=== PATIENT | female | born 1955 | race Caucasian/White ===

== ENCOUNTER → 2023-10-11 11:38 | Outpatient (REF) | payer MEDICARE, OTHER, SELFPAY | LOC: HWWDC 11:38 | PROVIDERS: ATTENDING PHYSICIAN Family Medicine | DX: Z12.31 Encounter for screening mammogram for malignant neoplasm of breast (principal) | CPT/HCPCS: 77063; 77067 ==

== ENCOUNTER → 2023-10-13 07:33 | Outpatient (REF) | payer MEDICARE, OTHER, SELFPAY | LOC: EMG 07:33 | PROVIDERS: ATTENDING PHYSICIAN Orthopaedic Surgery Orthopaedic Surgery of the Spine; FAMILY PHYSICIAN Family Medicine | DX: R20.0 Anesthesia of skin (principal) | CPT/HCPCS: 95886; 95909 ==

== ENCOUNTER → 2023-10-23 11:56 | Outpatient (REF) | payer MEDICARE, OTHER, SELFPAY ==
[2023-10-23 16:01] LABS: % Basophils 1.2 % (0-2); % Eosinophils 3.7 % (0-6); % Immature Granulocytes 0.2 % (0-0.5); % Lymphocytes 36.8 % (20.5-51.1); % Monocytes 10.5 % (1.7-9.3); % Neutrophils 47.6 % (42.2-75.2); Absolute Basophils 0.1 10^3/uL (0-0.2); Absolute Eosinophils 0.2 10^3/uL (0-0.7); Absolute Lymphocytes 1.9 10^3/uL (1.2-3.4); Absolute Monocytes 0.5 10^3/uL (0.1-0.6); Absolute Neutrophils 2.5 10^3/uL (1.4-6.5); Hematocrit 41.3 % (37.0-47.0); Hemoglobin 15.1 g/dL (12.0-16.0); Mean Corp Hgb Conc. 36.6 g/dL (33.0-37.0); Mean Corpuscular Hgb 32.4 pg (27.0-31.0); Mean Corpuscular Volume 88.6 fL (81.0-99.0); Mean Platelet Volume 11.2 fL (7.4-10.4); Nucleated Red Blood Cells % 0 %; Platelet Count 177 10^3/uL (130-400); Red Blood Cell Count 4.66 10^6/uL (4.20-5.40); Red Cell Dist. Width 12.8 % (11.5-14.5); White Blood Cell Count 5.1 10^3/uL (4.8-10.8)
[2023-10-23 16:16] LABS: ALT (SGPT) 51 U/L (0-35); AST (SGOT) 46 U/L (14-36); Albumin 4.4 g/dl (3.5-5.0); Alkaline Phosphatase 63 U/L (38-126); Blood Urea Nitrogen 26 mg/dl (7-17); Calcium 9.9 mg/dl (8.4-10.2); Carbon Dioxide 28 mmol/L (22-30); Chloride 104 mmol/L (98-107); Glucose 97 mg/dl (70-99); HDL Cholesterol 86 mg/dl; LDL Cholesterol, Calculated 97 mg/dl; Potassium 4.1 mmol/L (3.5-5.1); Sodium 139 mmol/L (135-145); Total Bilirubin 1.2 mg/dl (0.2-1.3); Total Cholesterol 196 mg/dl (50-199); Total Protein 7.1 g/dl (6.3-8.2); Triglyceride 68 mg/dl (10-149); Very Low Density Lipoprotein 13 mg/dl (0-30); eGFR > 60.00
[2023-10-24 09:07] LABS: Glycohemoglobin (HgbA1c) 5.6 % (4.0-5.6)
== END ==
LOC: HWLAB 11:56
PROVIDERS: ATTENDING PHYSICIAN Family Medicine
DX: Z00.00 Encounter for general adult medical examination without abnormal findings (principal); I10 Essential (primary) hypertension; E78.00 Pure hypercholesterolemia, unspecified; R73.01 Impaired fasting glucose
CPT/HCPCS: 36415; 80053; 80061; 83036; 85025

== ENCOUNTER → 2024-10-21 12:08 | Outpatient (REF) | payer MEDICARE, OTHER, SELFPAY | LOC: WDC 12:08 | PROVIDERS: ATTENDING PHYSICIAN Family Medicine | DX: Z12.31 Encounter for screening mammogram for malignant neoplasm of breast (principal) | CPT/HCPCS: 77063; 77067 ==

== ENCOUNTER → 2024-10-25 12:45 | Outpatient (REF) | payer MEDICARE, OTHER, SELFPAY ==
[2024-10-25 13:52] LABS: Hematocrit 40.6 % (37.0-47.0); Hemoglobin 14.1 g/dL (12.0-16.0); Mean Corp Hgb Conc. 34.7 g/dL (33.0-37.0); Mean Corpuscular Volume 89.8 fL (81.0-99.0); Nucleated Red Blood Cells % 0 %; Platelet Count 171 10^3/uL (130-400); Red Cell Dist. Width 12.7 % (11.5-14.5)
[2024-10-25 14:14] LABS: Glycohemoglobin (HgbA1c) 5.5 % (4.0-5.6)
[2024-10-25 14:19] LABS: ALT (SGPT) 57 U/L (0-35); AST (SGOT) 42 U/L (14-36); Albumin 4.4 g/dl (3.5-5.0); Alkaline Phosphatase 51 U/L (38-126); Blood Urea Nitrogen 24 mg/dl (7-17); Calcium 9.7 mg/dl (8.4-10.2); Carbon Dioxide 32 mmol/L (22-30); Chloride 106 mmol/L (98-107); Glucose 98 mg/dl (70-99); HDL Cholesterol 85 mg/dl; LDL Cholesterol, Calculated 88 mg/dl; Potassium 4.6 mmol/L (3.5-5.1); Sodium 139 mmol/L (135-145); Total Protein 7.3 g/dl (6.3-8.2); Very Low Density Lipoprotein 13 mg/dl (0-30); eGFR > 60.00
[2024-10-25 16:03] LABS: Hepatitis C Antibody Negative (Negative)
== END ==
LOC: REG 12:45
PROVIDERS: ATTENDING PHYSICIAN Family Medicine
DX: R79.89 Other specified abnormal findings of blood chemistry (principal); E78.00 Pure hypercholesterolemia, unspecified; R73.01 Impaired fasting glucose; I10 Essential (primary) hypertension; Z00.00 Encounter for general adult medical examination without abnormal findings
CPT/HCPCS: 36415; 80053; 80061; 83036; 85025; 86803

== ENCOUNTER → 2024-12-31 11:25 | Outpatient (REF) | payer MEDICARE, OTHER, SELFPAY | LOC: HWRAD 11:25 | PROVIDERS: ATTENDING PHYSICIAN Family Medicine | DX: R79.89 Other specified abnormal findings of blood chemistry (principal) | CPT/HCPCS: 76700 ==

== ENCOUNTER → 2025-01-29 15:38 | Outpatient (REF) | payer MEDICARE, OTHER, SELFPAY | LOC: RCS 15:38 | PROVIDERS: ATTENDING PHYSICIAN Internal Medicine Cardiovascular Disease; FAMILY PHYSICIAN Family Medicine | DX: R06.02 Shortness of breath (principal) | CPT/HCPCS: 93306 ==

== ENCOUNTER → 2025-01-30 13:50 | Outpatient (REF) | payer MEDICARE, OTHER, SELFPAY | LOC: RCS 13:50 | PROVIDERS: ATTENDING PHYSICIAN Internal Medicine Cardiovascular Disease; FAMILY PHYSICIAN Family Medicine | DX: R07.89 Other chest pain (principal) | CPT/HCPCS: 93017; 93350 ==

== ENCOUNTER → 2025-01-31 13:18 | Outpatient (REF) | payer MEDICARE, OTHER, SELFPAY ==
[2025-01-31 15:31] LABS: Hematocrit 42.1 % (37.0-47.0); Hemoglobin 14.5 g/dL (12.0-16.0); Mean Corp Hgb Conc. 34.4 g/dL (33.0-37.0); Mean Corpuscular Volume 87.7 fL (81.0-99.0); Nucleated Red Blood Cells % 0 %; Platelet Count 201 10^3/uL (130-400); Red Cell Dist. Width 12.4 % (11.5-14.5)
[2025-01-31 15:52] LABS: ALT (SGPT) 47 U/L (0-35); AST (SGOT) 31 U/L (14-36); Albumin 4.5 g/dl (3.5-5.0); Alkaline Phosphatase 63 U/L (38-126); Blood Urea Nitrogen 25 mg/dl (7-17); Calcium 9.9 mg/dl (8.4-10.2); Carbon Dioxide 27 mmol/L (22-30); Chloride 105 mmol/L (98-107); Glucose 131 mg/dl (70-99); Potassium 4.1 mmol/L (3.5-5.1); Sodium 137 mmol/L (135-145); Total Protein 7.5 g/dl (6.3-8.2); eGFR > 60.00
== END ==
LOC: HWLAB 13:18
PROVIDERS: ATTENDING PHYSICIAN Internal Medicine Interventional Cardiology; FAMILY PHYSICIAN Family Medicine
DX: E78.00 Pure hypercholesterolemia, unspecified (principal); I10 Essential (primary) hypertension; R06.02 Shortness of breath
CPT/HCPCS: 36415; 80053; 85025

== ENCOUNTER 2025-02-03 06:17 | Day surgery (SDC) | payer MEDICARE, OTHER, SELFPAY ==
[2025-02-03] VITALS (11 sets, daily range): BP systolic 125–154; BP diastolic 80–102; BMI 30.4
[2025-02-03] MEDS: NSS 237 ML IV (07:05)
[2025-02-03] MEDS: LOW STRENGTH ASPIRIN 81 MG PO (07:13)
[2025-02-03] MEDS: NSS 1000 IV (09:41)
--- NOTE | 2025-02-03 16:57 | ITS.CL.CATH ---
[facility] - Catheterization
Cardiac Catheterization
Procedure Report:
LEFT HEART CATHETERIZATION
Date of Procedure: February 03, 2025
Referring: Dr. Benson Zhu
PROCEDURES:
1. Left heart catheterization with coronary and single-plane left ventriculography
INDICATION: This is a 69-year-old female who was referred for stress echocardiogram that was notable for ECG changes and low-grade chest discomfort. Regional wall motion abnormalities were noted and she is now referred for coronary angiography.
ACCESS: Right radial artery, 6 [place] sheath
HEMODYNAMICS : (mmHg)
AO (s/d) : 142/85
LV (s/d) : 157/11
LVEDP : 19
CORONARY FINDINGS
DOMINANCE: Right
LEFT MAIN: Normal
LEFT ANTERIOR DESCENDING: The LAD is heavily calcified. There is a calcified eccentric plaque in the proximal LAD and the mid LAD is 100% occluded after a small diagonal branch. The distal vessel was noted to go stent via left to left collaterals.
CIRCUMFLEX: The circumflex has a heavily calcified eccentric 90% stenosis. Circumflex supplies a small OM1 and large caliber OM 2
RIGHT CORONARY ARTERY: The right coronary artery is heavily calcified with an eccentric calcified 70 to 80% stenosis spanning the origin of the RV marginal branch and 60% calcified stenosis distally. The PDA is a medium caliber vessel with tandem
60% stenoses in the mid vessel. The posterolateral branch is a large with an 80% proximal stenosis
VENTRICULOGRAPHY: Left ventriculography was performed in an ROA projection. The digital single-plane left ventricular ejection fraction is estimated at 60%
SEDATION: 31 minutes of procedural sedation was utilized. An independent director of medical staff services was present to assist with and help manage the patient's level of consciousness and physiologic status.
RADIATION SUMMARY: Fluoro Time (min): 3.0, Dose (mGy): 478, DAP (Gy.cm2) : 31.9
Closure Device: TR band
CONCLUSIONS
1. Severe multivessel coronary artery disease involving all the major epicardial vessels including LAD, circumflex, and RCA.
2. Preserved LV systolic function
RECOMMENDATIONS
1. Consult CT surgery to consider coronary artery bypass grafting
Copy to: Dr. Benson Zhu
== END 2025-02-03 11:59 | disposition home or self-care (01) ==
LOC: CATH 06:17
PROVIDERS: ATTENDING PHYSICIAN Internal Medicine Interventional Cardiology; FAMILY PHYSICIAN Family Medicine; OTHER PHYSICIAN Internal Medicine Cardiovascular Disease
DX: I25.10 Atherosclerotic heart disease of native coronary artery without angina pectoris (principal); I25.84 Coronary atherosclerosis due to calcified coronary lesion; R07.89 Other chest pain; I10 Essential (primary) hypertension; E78.2 Mixed hyperlipidemia; Z79.899 Other long term (current) drug therapy
CPT/HCPCS: 99152; 99153; 93458; C1769; C1894; Q9967

== ENCOUNTER → 2025-02-06 13:04 | Outpatient (REF) | payer MEDICARE, OTHER, SELFPAY | LOC: HWRAD 13:04 | PROVIDERS: ATTENDING PHYSICIAN Thoracic Surgery (Cardiothoracic Vascular Surgery); FAMILY PHYSICIAN Family Medicine | DX: Z01.818 Encounter for other preprocedural examination (principal); I25.10 Atherosclerotic heart disease of native coronary artery without angina pectoris | CPT/HCPCS: 71250 ==

== ENCOUNTER 2025-02-10 05:35 | Inpatient (IN) | payer MEDICARE, OTHER, SELFPAY ==
[2025-02-06 08:52] VITALS: BMI 29.4
[2025-02-06 09:15] LABS: Hematocrit 41.0 % (37.0-47.0); Hemoglobin 14.2 g/dL (12.0-16.0); Mean Corp Hgb Conc. 34.6 g/dL (33.0-37.0); Mean Corpuscular Volume 87.8 fL (81.0-99.0); Nucleated Red Blood Cells % 0 %; Platelet Count 180 10^3/uL (130-400); Red Cell Dist. Width 12.6 % (11.5-14.5)
[2025-02-06 09:25] LABS: INR 0.96; PT 13.2 Sec (11.4-14.6)
[2025-02-06 09:31] LABS: Urine Character Clear (Clear)
[2025-02-06 09:55] LABS: Urine Squamous Cell >30 /LPF (Few)
[2025-02-06 09:57] LABS: ALT (SGPT) 39 U/L (0-35); AST (SGOT) 29 U/L (14-36); Albumin 4.1 g/dl (3.5-5.0); Alkaline Phosphatase 59 U/L (38-126); Blood Urea Nitrogen 16 mg/dl (7-17); Calcium 9.8 mg/dl (8.4-10.2); Carbon Dioxide 26 mmol/L (22-30); Chloride 106 mmol/L (98-107); Estimated Creatinine Clearance 79 ml/min; Glucose 132 mg/dl (70-99); Potassium 3.8 mmol/L (3.5-5.1); Sodium 138 mmol/L (135-145); Total Protein 7.0 g/dl (6.3-8.2); eGFR > 60.00
[2025-02-06 10:03] LABS: Glycohemoglobin (HgbA1c) 5.8 % (4.0-5.9)
--- NOTE | 2025-02-06 10:57 | CM ---
spoke to pt and niece/Hemant in PAT's. we discussed preop CABG teaching including sternal and lifting restrictions. she is prev indep, lives alone in a 2 story home with 1 step to enter. she has had prev surgeries and has a ramp, stair glide,
walker , cane and a WC at home to use if needed. pts friend is going to stay with her for a month after surgery. she has the ct surgery book, soap and instructions. she is agreeable to a f/u visit form the ct transitional care nurses after dc. cm
role explained and all questions answered.
[2025-02-10] VITALS (16 sets, daily range): BP systolic 79–150; BP diastolic 62–91; BMI 28.8
[2025-02-10] MEDS: PROTONIX 40 MG PO (06:01)
[2025-02-10] MEDS: LOPRESSOR 25 MG PO (06:01)
[2025-02-10] MEDS: MAGNESIUM OXIDE 400 MG PO (06:01)
[2025-02-10] MEDS: BACTROBAN 2% OINTMENT 1 APPLIC NASAL ×2 (06:02→20:54)
--- NOTE | 2025-02-10 06:10 | PTCARENOTE ---
Patient admitted to CVICU. Admission questions asked. Confirmed 2 CHG showers. Med rec completed. Multi vitamin and Vitamin D 3 patient states were taken 4 days ago on 02/06/25. Medications administered. Washed patient w/ CHG wipes, clipped,
and labs drawn. Awaiting CVOR.
--- NOTE | 2025-02-10 06:19 | W.CVOR.SURPR ---
CVOR Surgeon Immed Pre Op
-
I have examined this patient prior to performance of the scheduled procedure.
The patient's condition is unchanged from the time of the dictated/written History and
Physical and the patient is able to undergo the scheduled procedure.
[2025-02-10 07:51] LABS: ACT+ - POC 137 Seconds (82-134)
[2025-02-10 08:03] LABS: Urine Character Clear (Clear)
[2025-02-10 10:01] LABS: ACT+ - POC 616 Seconds (82-134)
[2025-02-10 10:20] LABS: B.E. - POC -0.8 mmol/L; Glucose - POC 105 mg/dl (70-99); HCO3 - POC 25 mmol/L (21-28); Hematocrit - POC 36 % PCV (37-47); Hemodilution- POC No; Hemoglobin Calculated - POC 12.1; Ionized Calcium - POC 1.24 mmol/L (1.15-1.33); Lactate - POC 1.02 mmol/L (0.36-0.75); O2 Saturation %Calculated-POC 99.8 % (94-98); PCO2 - POC 44 mmHg (35-48); PO2 - POC 249 mmHg (83-108); Potassium - POC 3.4 mmol/L (3.5-5.1); Sodium - POC 141 mmol/L (136-145); Specimen Type - POC Arterial; pH - POC 7.36 (7.35-7.45)
[2025-02-10 10:32] LABS: ACT+ - POC 656 Seconds (82-134)
[2025-02-10 10:47] LABS: B.E. - POC 4.8 mmol/L; Glucose - POC 125 mg/dl (70-99); HCO3 - POC 29 mmol/L (21-28); Hematocrit - POC 31 % PCV (37-47); Hemodilution- POC Yes; Hemoglobin Calculated - POC 10.6; Ionized Calcium - POC 0.99 mmol/L (1.15-1.33); Lactate - POC 1.04 mmol/L (0.36-0.75); O2 Saturation %Calculated-POC 100.0 % (94-98); PCO2 - POC 40 mmHg (35-48); PO2 - POC 350 mmHg (83-108); POC Comment CPB; Potassium - POC 4.4 mmol/L (3.5-5.1); Sodium - POC 141 mmol/L (136-145); Specimen Type - POC Arterial; pH - POC 7.47 (7.35-7.45)
[2025-02-10 10:55] LABS: ACT+ - POC 568 Seconds (82-134)
[2025-02-10 11:15] LABS: B.E. - POC 4.9 mmol/L; Glucose - POC 127 mg/dl (70-99); HCO3 - POC 27 mmol/L (21-28); Hematocrit - POC 29 % PCV (37-47); Hemodilution- POC Yes; Hemoglobin Calculated - POC 9.8; Ionized Calcium - POC 1.09 mmol/L (1.15-1.33); Lactate - POC 1.76 mmol/L (0.36-0.75); O2 Saturation %Calculated-POC 99.9 % (94-98); PCO2 - POC 32 mmHg (35-48); PO2 - POC 289 mmHg (83-108); POC Comment CPB; Potassium - POC 4.2 mmol/L (3.5-5.1); Sodium - POC 139 mmol/L (136-145); Specimen Type - POC Arterial; pH - POC 7.54 (7.35-7.45)
[2025-02-10 11:25] LABS: ACT+ - POC 602 Seconds (82-134)
[2025-02-10 11:43] LABS: B.E. - POC 1.5 mmol/L; Glucose - POC 139 mg/dl (70-99); HCO3 - POC 26 mmol/L (21-28); Hematocrit - POC 31 % PCV (37-47); Hemodilution- POC Yes; Hemoglobin Calculated - POC 10.6; Ionized Calcium - POC 1.09 mmol/L (1.15-1.33); Lactate - POC 2.37 mmol/L (0.36-0.75); O2 Saturation %Calculated-POC 99.9 % (94-98); PCO2 - POC 41 mmHg (35-48); PO2 - POC 271 mmHg (83-108); POC Comment WARM; Potassium - POC 4.2 mmol/L (3.5-5.1); Sodium - POC 143 mmol/L (136-145); Specimen Type - POC Arterial; pH - POC 7.42 (7.35-7.45)
[2025-02-10 11:46] LABS: ACT+ - POC 479 Seconds (82-134)
[2025-02-10 11:59] LABS: ACT+ - POC 590 Seconds (82-134)
[2025-02-10 12:08] LABS: B.E. - POC 1.3 mmol/L; Glucose - POC 154 mg/dl (70-99); HCO3 - POC 26 mmol/L (21-28); Hematocrit - POC 32 % PCV (37-47); Hemodilution- POC Yes; Hemoglobin Calculated - POC 11.0; Ionized Calcium - POC 1.10 mmol/L (1.15-1.33); Lactate - POC 2.84 mmol/L (0.36-0.75); O2 Saturation %Calculated-POC 99.9 % (94-98); PCO2 - POC 43 mmHg (35-48); PO2 - POC 253 mmHg (83-108); POC Comment WARM; Potassium - POC 4.2 mmol/L (3.5-5.1); Sodium - POC 143 mmol/L (136-145); Specimen Type - POC Arterial; pH - POC 7.39 (7.35-7.45)
[2025-02-10] MEDS: ANCEF 10 IV ×2 (12:08)
[2025-02-10 12:14] LABS: ACT+ - POC 137 Seconds (82-134)
[2025-02-10 12:32] LABS: B.E. - POC -4.8 mmol/L; Glucose - POC 97 mg/dl (70-99); HCO3 - POC 20 mmol/L (21-28); Hematocrit - POC 26 % PCV (37-47); Hemodilution- POC Yes; Hemoglobin Calculated - POC 8.8; Ionized Calcium - POC 1.22 mmol/L (1.15-1.33); Lactate - POC 3.02 mmol/L (0.36-0.75); O2 Saturation %Calculated-POC 99.2 % (94-98); PCO2 - POC 32 mmHg (35-48); PO2 - POC 140 mmHg (83-108); POC Comment POST; Potassium - POC 3.0 mmol/L (3.5-5.1); Sodium - POC 144 mmol/L (136-145); Specimen Type - POC Arterial; pH - POC 7.39 (7.35-7.45)
[2025-02-10] MEDS: NEURONTIN PO ×2 (12:45→15:45)
[2025-02-10] MEDS: VITAMIN D3 (cholecalciferol) PO (12:45)
[2025-02-10] MEDS: THERAGRAN PO (12:45)
[2025-02-10 12:51] LABS: B.E. - POC -2.6 mmol/L; Glucose - POC 92 mg/dl (70-99); HCO3 - POC 22 mmol/L (21-28); Hematocrit - POC 29 % PCV (37-47); Hemodilution- POC Yes; Hemoglobin Calculated - POC 10.0; Ionized Calcium - POC 1.23 mmol/L (1.15-1.33); Lactate - POC 3.61 mmol/L (0.36-0.75); O2 Saturation %Calculated-POC 99.9 % (94-98); PCO2 - POC 37 mmHg (35-48); PO2 - POC 316 mmHg (83-108); Potassium - POC 3.7 mmol/L (3.5-5.1); Sodium - POC 142 mmol/L (136-145); Specimen Type - POC Arterial; pH - POC 7.39 (7.35-7.45)
--- NOTE | 2025-02-10 13:17 | W.IMMPOSTOP ---
Addendum entered and electronically signed by Paul Norman MD 02/10/25 16:57:
[id number]
Original Note:
Surgical Immed Post Op Note
-
CARDIAC SURGERY OPERATIVE NOTE:
Preoperative Dx:
MVCAD
Postoperative Dx:
Same
Procedures:
1) Median sternotomy
2) Takedown of LOUANN (narrow pedicle)
3) Endoscopic harvest/prep of RLE GSV
4) CABG x 3 (LOUANN to LAD, GSV to OM, GSV to mid-PDA)
5) ELAA (35mm AtriClip)
Surgeon:
Paul Norman M.D.
Assistants:
Erika AngA.-C.; endoscopic harvest/prep of RLE GSV; surgical first assistant throughout; uoinzx-rhcj-vhuu sternotomy closure
Zach Guevara P.A.-C.; rgresm-uyff-gdle sternotomy closure
Anesthesia:
Vince Ariza M.D. and Kassidy Ortiz, C.R.N.A.
Perfusion:
Caroline Ness, C.C.P.; CPB: 106min, XC: 68min
Findings:
LOUANN was healthy conduit w/ very brisk blood flow; ELD 2.25mm
GSV was healthy conduit w/ ELD 3.25-4.00mm
LAD was visible on the epicardial surface, aflefhcc-jy-qghuc scattered calcification, anastomosis performed just distal to D2/D3. No sig calcifications at this location. ELD 2.75mm. Very brisk flow observed entering LAD and diagonal branches w/
release of bulldog clamp.
Major OM branch was visible on the epicardial surface, moderate scattered calcifications, ELD 3.25mm
RPDA was visible on the epicardial surface, druedksl-oh-rbzqp scattered calcifications from proximal to mid-segments. ELD 3.00mm at midpoint anastomosis
RPLBs were all small (<1mm), terminal RPLB branch was slightly larger - 1.25mm....however, its course was in very close proximity to large, bypassed OM branch - bypass not performed
ARTHUR w/ small base & windsock morphology - successfully occluded at its base w/ 35mm AtriClip - confirmed w/ postoperative KIEL
After initial sternal closure, pt. w/ minor hypotension w/ SBP in 70s-80s and concurrent bigeminy. Mediastinal re-explored w/no bleeding, good position in all grafts. Transit-time U/S flow probe assessment repeated w/ continued excellent flow in
all grafts. Pt. w/ good response to pharmacologic resuscitation w/ SBP 120s - bigeminy resolved. Sternum closed w/o issue
Complications:
None
Implants:
Epicardial bipolar V-wire x 1 (not sutured)
CT x 4 (B/L pleural, inferior mediastinal, superior mediastinal)
Sternal wires x 8
Condition:
75 sinus (0.2/0.1), 113/71, CVP 20, 99%
GTTS: levophed 6, precedex 0.5, insulin 0.5
Stable/guarded to CVICU
[2025-02-10] MEDS: TYLENOL PO (13:38)
[2025-02-10 13:47] LABS: Glucose - Point of Care 186 mg/dl (70-99)
[2025-02-10 13:58] LABS: Hematocrit 35.0 % (37.0-47.0); Hemoglobin 12.1 g/dL (12.0-16.0); Platelet Count 144 10^3/uL (130-400)
[2025-02-10 13:59] LABS: B.E. -2.2 mmol/L; HCO3 23.2 mmol/L (21-28); O2 Saturation % 99.6 % (94-98); PCO2 41 mmHg (32-35); PO2 147 mmHg (83-108); Potassium 4.2 mMOL/L (3.5-5.1); Sodium 138 mMOL/L (136-145)
[2025-02-10 14:09] LABS: INR 1.37; PT 17.2 Sec (11.4-14.6)
--- NOTE | 2025-02-10 14:09 | CM ---
Patient to OR today for CABGx3/AtriClip. CM following.
[2025-02-10 14:10] LABS: APTT 29.8 Sec (23.4-35.0)
[2025-02-10 14:16] LABS: Blood Urea Nitrogen 13 mg/dl (7-17); Estimated Creatinine Clearance 92 ml/min; Glucose 183 mg/dl (70-99); Magnesium 2.8 mg/dl (1.6-2.3)
[2025-02-10] MEDS: NSS 500 IV (14:18)
[2025-02-10] MEDS: CALCIUM GLUCONATE 100 IV (14:30)
--- NOTE | 2025-02-10 14:51 | PTCARENOTE ---
Pt arrived from CVOR to CVICU at 1345. Pt remains intubated and sedated. EKG completed, pt is SR with HR 70's. BP 127/72 MAP 91. CVP 12. Epicardial V wire in place set to 30/10/2. Current temp 97.1, Eri hugger in place. Pt intubated with #8 ET tube
at 22cm left lip. Oral care completed. Vent settings FiO2 40%, RR 14, TV 400, PEEP 5, pressure support 5. Pulse oximetry 96%. Mediastinal chest x2 and left/right pleural chest tubes in place to -20 suction, no sign of air leak or crepitus, drainage
red. Bowel sounds hypoactive. Betancourt catheter in place draining yellow urine. Betancourt care completed. Midsternal incision with post-surgical pressing in place, small amount of drainage noted. Right leg puncture approximated with surgical adhesive.
Right leg incision with aislinn wrap in place. Right IJ cordis and SLIC in place. Left radial [place] intact. Pt currently on Insulin, Precedex, and Levo. Post-op EKG and X-ray completed. Labs collected and reviewed. iCal being replaced per order.
--- NOTE | 2025-02-10 15:04 | CON.INTV ---
Consultation
Consultation Request
Date/Time Consultation Requested: 02/10/2025-2 PM
Date/Time Consultation Performed: 02/10/2025-2:30 PM
Requesting Provider: Dr. Norman
Performing Provider: Dr. Gilliam
Reason for Consultation: Postoperative ventilator/critical care management
Medical History
-
Chief Complaint: CAD
History of Present Illness:
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 The patient
is sedated on the ventilator seen in the CVICU nonverbal and review of systems unobtainable. Operative records were reviewed. She did not receive any blood products. Chest tubes are not dumping. She is on intermittent low-dose norepinephrine.
Past Medical History
Past Medical History: None (Hypertension. Hyperlipidemia. CAD. Chronic headaches. Chronic back pain. Meniscal tear left knee. Bilateral rotator cuff 2010, 2017. Rhinoplasty 1996. Carpal tunnel.)
Social History
Tobacco: Non-smoker
Alcohol: Occasional (2 glasses a year)
Drug: None
Personal: Single
Occupational Exposures: No known asbestos exposure
Environmental Exposures: No known tuberculosis exposure
Family History
Family History: Reviewed & Not Pertinent (Father-CVA and CAD, hypertension. Mother cardiomyopathy)
Allergies / Home Medications
Allergies
Allergy/AdvReac Type Severity Reaction Status Date / Time
Penicillins Allergy Severe Rash/Hives Verified 02/10/25 05:22
Sulfa (Sulfonamide Allergy Severe Anaphylaxis Verified 02/04/25 16:57
Antibiotics)
oxycodone (From Percocet) Allergy Intermediate Nausea/Vomi Verified 02/10/25 05:22
ting
banana Allergy mouth Verified 02/04/25 16:58
swelling
coconut Allergy mouth Verified 02/04/25 16:58
swelling
Home Medications
�Medication �Instructions �Recorded �Confirmed �Last Taken �Type
aspirin 81 mg tablet 81 mg PO DAILY 02/03/25 02/10/25 02/09/25 08:00 History
cholecalciferol (vitamin D3) 25 25 mcg PO DAILY 02/03/25 02/10/25 02/06/25 08:00 History
mcg (1,000 unit) chewable tablet
(Vitamin D3)
lisinopril 5 mg tablet 5 mg PO HS 02/03/25 02/10/25 02/06/25 19:00 History
metoprolol succinate 25 mg 25 mg PO BID #60 tabs 02/03/25 02/10/25 02/09/25 19:00 Rx
tablet,extended release 24 hr
multivitamin 1 tab PO DAILY 02/03/25 02/10/25 02/06/25 08:00 History
rosuvastatin 40 mg tablet 40 mg PO HS 02/04/25 02/10/25 02/09/25 17:00 History
Review of Systems
-
Unable to Obtain full review of systems at this time due to: Other (Per HPI)
Vitals / Labs / Diagnostic Testing
Vital Signs
Temp Pulse Resp BP Pulse Ox
97 F 79 14 95/72 96
02/10/25 15:00 02/10/25 15:00 02/10/25 15:00 02/10/25 14:00 02/10/25 15:00
Lab Data
02/10/25 13:49
Laboratory Results
02/10/25
13:49
PT 17.2 H
INR 1.37
APTT 29.8
pH 7.36
pCO2 41 H
pO2 147 H
HCO3 23.2
O2 Delivery Level
Microbiology
02/06/25 08:35 Nose MRSA Screen - Final
No Methicillin Resistant Staphylococcus aureus isolated.
Diagnostic Testing:
Physical Exam
-
Exam:
Well-nourished and well-developed in no apparent distress
HEENT-atraumatic, normocephalic, oral tracheal intubation
Heart-regular rate and rhythm-no murmurs, rubs or gallops
Chest-clear to auscultation, no wheezes, crackles, median sternotomy bandage is not removed
Abdomen soft nondistended
Extremities-no cyanosis, clubbing, edema and good peripheral pulses
Integument-intact, no rashes, lesions or ecchymosis
Neurologically not alert, not oriented, not moving any of his extremities sedated on a ventilator
Assessment
-
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
Multivessel CAD with preoperative preserved EF
Status post CABG x 3-Liz-LAD, GSV-OM, GSV to mid PDA 02/10/2025-Dr. Norman
Hyperglycemia-blood sugar 183, A1c 5.8
Conditions present prior to admission:
Hypertension.
Hyperlipidemia.
CAD.
Chronic headaches.
Chronic back pain.
Meniscal tear left knee. Bilateral rotator cuff 2010, 2017. Rhinoplasty 1996. Carpal tunnel.
Plan
Ventilator settings reviewed
FiO2 will be weaned
Minute ventilation will be adjusted
Arterial blood gases will be monitored
Spontaneous breathing trial will be attempted with hopeful extubation after anesthesia/sedation wear off
Pulmonary artery catheter parameters will be followed
Pressors/antihypertensive/inotropes/diuretics will be provided as needed
Monitor chest tube output
Monitor hemoglobin
Monitor platelet count and coags
Transfuse blood product if needed
CT surgery following chest tubes
Monitor blood sugar
Insulin drip per protocol
Aspiration precautions
VAP prevention protocol
DVT prophylaxis
Early nutrition
Early mobilization
Critical care statement: A total of 55 minutes of critical care time was provided for this patient today. This includes management of ventilator, spontaneous breathing trial, arterial blood gases, pressors, of unstable vital signs, evaluation of the
patient at bedside, reviewing the patient's pertinent medical records including radiographs, microbiology, laboratory evaluations, and discussion with primary team and critical care nursing.
Diagnostic data:
CT chest 02/06/2025-no acute findings in the chest, severe coronary artery calcifications
Cardiac catheterization 02/03/2025-severe multivessel CAD involving all the major epicardial vessels including LAD, circumflex and RCA with EF 60%
Data Reviewed
-
EKG: Report reviewed by me
Radiology: Report reviewed by me
CT Scan: Report reviewed by me
Medical Tests (Nuc Med, Echo etc): Report reviewed by me
Labs: Labs reviewed by me
Critical Care Time (in minutes): 55
[2025-02-10 15:07] LABS: Glucose - Point of Care 144 mg/dl (70-99)
[2025-02-10] MEDS: PACERONE PO (15:44)
[2025-02-10 16:03] LABS: Glucose - Point of Care 110 mg/dl (70-99)
--- NOTE | 2025-02-10 16:08 | PTCARENOTE ---
Precedex gtt off. Pt triggering on vent, respiratory at bedside and placed pt on CPAP trial at 1554. Pt briefly awoke, able to move all extremities. Tolerating CPAP trial at this time. Pt remains SR with HR 98. BP 115/70 MAP 85. CVP 13. Remains on
Levo 1mcg/min.
[2025-02-10 16:41] LABS: B.E. -0.6 mmol/L; HCO3 24.9 mmol/L (21-28); O2 Saturation % 98.4 % (94-98); PCO2 43 mmHg (32-35); PO2 93 mmHg (83-108); Potassium 4.4 mMOL/L (3.5-5.1); Sodium 139 mMOL/L (136-145)
[2025-02-10 16:46] LABS: Hematocrit 37.0 % (37.0-47.0); Hemoglobin 13.0 g/dL (12.0-16.0); Platelet Count 161 10^3/uL (130-400)
--- NOTE | 2025-02-10 16:55 | RESPNOTE ---
16:50 02/10/2025 Patient extubated to 5L NC as per order without incident. (+) cuff leak, (-) stridor at this time.
[2025-02-10] MEDS: LR 250 ML IV ×3 (16:58→23:30)
[2025-02-10 17:14] LABS: Glucose - Point of Care 98 mg/dl (70-99)
[2025-02-10] MEDS: OFIRMEV 100 IV (17:19)
--- NOTE | 2025-02-10 17:21 | PTCARENOTE ---
Pt extubated to 6L nasal cannula at 1650, pulse oximetry 95%. Pt remains very drowsy but is able to awake, state name and and move all extremities. Pt received 250mL LR bolus and is now receiving Ofirmev. Remains SR with HR 98. BP 112/63 MAP 80.
CVP 13. Levo currently off.
[2025-02-10 17:58] LABS: Glucose - Point of Care 110 mg/dl (70-99)
[2025-02-10 19:17] LABS: Glucose - Point of Care 115 mg/dl (70-99)
[2025-02-10] MEDS: ANCEF 5 IV (20:53)
[2025-02-10] MEDS: LOW STRENGTH ASPIRIN 81 MG PO (20:53)
[2025-02-10] MEDS: SENOKOT 8.6 MG PO (20:54)
[2025-02-10] MEDS: ULTRAM 25 MG PO (20:55)
--- NOTE | 2025-02-10 21:00 | PTCARENOTE ---
Assumed care of pt from dayshift RN. Walking rounds at bedside. Pt AAOx3. S/P CVOR. MACIAS. Appropriate. SR on the tele monitor. HR 80s. Temporary epicardial v-wire intact and set to VVI 30/10/2. BP 90-120s/50-60s. CVP ~7-12. Pt 97% on 6 L NC, titrated
down to 4L NC. Mediastinal CTx2 and R/L pleural CT's to -20 suction, no airleaks noted at this time, and output as documented. Abdomen round. Hypoactive BS. Betancourt catheter intact and draining yellow urine. Pt tolerating ice chips. All surgical sites
stable. Right IJ cordis w/ SLIC, PIVx1, and L radial a-line intact. All lines leveled, zeroed, and flushed. Levo infusing to keep SBPs 100-130s. Pt repositioned as needed. See worklist for full nursing assessment and interventions. Tramadol ordered
for pain management - see MAR. Call ashton within reach.
[2025-02-10 21:06] LABS: Glucose - Point of Care 106 mg/dl (70-99)
[2025-02-10 23:02] LABS: Glucose - Point of Care 95 mg/dl (70-99)
[2025-02-10] MEDS: NEURONTIN 100 MG PO (23:03)
[2025-02-10] MEDS: PACERONE 200 MG PO (23:03)
[2025-02-10] MEDS: LIPITOR 80 MG PO (23:03)
[2025-02-10] MEDS: TYLENOL 975 MG PO (23:05)
[2025-02-11] VITALS (36 sets, daily range): BP systolic 76–125; BP diastolic 56–90; PULSE 87; O2SAT 96–97; BMI 30.1
--- NOTE | 2025-02-11 00:43 | PTCARENOTE ---
Pt reassessed. Remains SR on the tele monitor. HR 80s. V-wire intact. BP 100-110s/50s. CVP ~7-8. 250 LR bolus x2 for low BPs. Pt 96% on 4 L NC. Mediastinal CTx4 assessment unchanged. Output as documented. Betancourt catheter intact and draining yellow
urine. All surgical sites stable. All lines leveled, zeroed, and flushed. Glycemic protocol followed. Low dose levo infusing. Repositioned as documented in worklist. No c/o pain at this time. Call ashton within reach.
[2025-02-11 01:16] LABS: Glucose - Point of Care 112 mg/dl (70-99)
[2025-02-11] MEDS: LR 250 ML IV ×2 (03:10→08:09)
[2025-02-11 03:13] LABS: Glucose - Point of Care 83 mg/dl (70-99)
[2025-02-11 03:34] LABS: Hematocrit 32.6 % (37.0-47.0); Hemoglobin 11.4 g/dL (12.0-16.0); Mean Corp Hgb Conc. 35.0 g/dL (33.0-37.0); Mean Corpuscular Volume 88.6 fL (81.0-99.0); Platelet Count 155 10^3/uL (130-400); Red Cell Dist. Width 12.5 % (11.5-14.5)
[2025-02-11] MEDS: ULTRAM 25 MG PO (03:53)
[2025-02-11] MEDS: ANCEF 5 IV ×2 (03:54→12:07)
[2025-02-11 03:57] LABS: Blood Urea Nitrogen 14 mg/dl (7-17); Calcium 8.2 mg/dl (8.4-10.2); Carbon Dioxide 26 mmol/L (22-30); Chloride 107 mmol/L (98-107); Estimated Creatinine Clearance 92 ml/min; Glucose 88 mg/dl (70-99); Magnesium 2.2 mg/dl (1.6-2.3); Potassium 4.0 mmol/L (3.5-5.1); Sodium 135 mmol/L (135-145); eGFR > 60.00
--- NOTE | 2025-02-11 04:43 | PTCARENOTE ---
No change in assessment. SR on tele. V-wire intact. HR 80s. BP 100s/50s. SBP's drop to 80s when levo off. Pt on 2 L NC. POX 95%. Mediastinal CTx2 assessment unchanged, outputs as documented. Betancourt catheter intact and draining yellow urine. EKG
completed. Labs sent. Pt repositioned as documented. Glycemic protocol followed. Levo @ 1. Call ashton within reach.
[2025-02-11 05:08] LABS: Glucose - Point of Care 115 mg/dl (70-99)
[2025-02-11] MEDS: TYLENOL 975 MG PO ×3 (06:28→22:16)
[2025-02-11 07:20] LABS: Glucose - Point of Care 96 mg/dl (70-99)
--- NOTE | 2025-02-11 07:24 | W.PN.INTV ---
Today's Communication / Plan
Recommendations
Wean pressors
Tolerated extubation
Wean supplemental oxygen
Incentive spirometry
Aspiration precaution
Increase activity
Insulin drip
Assessment
-
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
Multivessel CAD with preoperative preserved EF
Status post CABG x 3-Liz-LAD, GSV-OM, GSV to mid PDA 02/10/2025-Dr. Norman
Hyperglycemia-blood sugar 183, A1c 5.8
Conditions present prior to admission:
Hypertension.
Hyperlipidemia.
CAD.
Chronic headaches.
Chronic back pain.
Meniscal tear left knee. Bilateral rotator cuff 2017. Rhinoplasty 1996. Carpal tunnel.
Plan
Remains critically ill on norepinephrine
Episode of lightheadedness when trying to get out of bed this morning with marginal blood pressure
Tolerated extubation
Wean FiO2
Encourage incentive spirometry
Increase activity
Aspiration precautions
Pulmonary artery catheter and arterial line will be removed
Pressors to be weaned-on low-dose norepinephrine
Continue to monitor chest tube output
Follow hemoglobin
Continue to follow platelet count and coags
Transfuse blood product as needed
CT surgery following chest tubes as well
Follow blood sugar
Insulin drip continues
Early nutrition
Early mobilization
DVT prophylaxis
Critical care statement: A total of 35 minutes of critical care time was provided for this patient today. This includes management of ventilator, spontaneous breathing trial, arterial blood gases, pressors, of unstable vital signs, evaluation of the
patient at bedside, reviewing the patient's pertinent medical records including radiographs, microbiology, laboratory evaluations, and discussion with primary team and critical care nursing.
Diagnostic data:
CT chest 02/06/2025-no acute findings in the chest, severe coronary artery calcifications
Cardiac catheterization 02/03/2025-severe multivessel CAD involving all the major epicardial vessels including LAD, circumflex and RCA with EF 60%
Subjective Dataa
Subjective Data
Date of Service:
Date of Service: February 11, 2025
Chief Complaint: Missile [employer] Preflight Follow Up, Pulmonary Follow Up and Vent Management Follow Up
Subjective:
Tolerated extubation, lightheaded this morning when she tried to get up, marginal blood pressures, out of bed over norepinephrine, currently no shortness of breath, pain controlled,
Review of Systems
General: Other (Per HPI)
Objective Data
Data Reviewed
Vital Signs / I&O / Oxygen:
Vital Signs
Temp Pulse Resp BP Pulse Ox
99 F 83 16 77/57 97
02/11/25 06:00 02/11/25 07:00 02/11/25 07:00 02/11/25 07:00 02/11/25 07:00
Intake and Output
02/10/25 02/11/25 02/12/25
06:59 06:59 06:59
Intake Total 1510.4 / 1540.2 29.8 / 29.8
Output Total 1969 / 2059 90 / 90
Balance -459.6 / -519.8 -60.2 / -60.2
SaO2 [CPAP] 96
SaO2 [SIMV] 97
SaO2 97
Nasal Cannula flow liters per 2
minute
Physical Exam
General: Respiratory Distress and Comfortable
HEENT: Normocephalic and Anicteric
Cardiovascular: Regular Rhythm
Respiratory: Wheeze (n), Crackles (n), Rhonchi, Non-Labored Respirations, Accessory Resp Muscle Use (n) and Stridor
GI: Soft, Non Distended and Non Tender
Neurology: Awake, Alert and No Motor Deficits
Skin: Warm, Good Color, Cyanosis (n), Jaundice (n) and Rash (n)
Labs/Micro/Reports
Lab Data
02/11/25 03:18
02/11/25 03:18
Laboratory Results
02/10/25 02/10/25 02/11/25
13:49 16:31 06:00
PT 17.2 H
INR 1.37
APTT 29.8
pH 7.36 7.37 Cancelled
pCO2 41 H 43 H Cancelled
pO2 147 H 93 Cancelled
HCO3 23.2 24.9 Cancelled
O2 Delivery Level Cancelled
--- NOTE | 2025-02-11 07:51 | W.PN.ANS.POP ---
Anesthesia Post Operative
- Anesthesia Post Op Note
Vital Signs Stable-See Nursing Note: Yes (levo gtt)
Airway Patent: Yes (nasal cannula)
Adequate Pain Control: Yes
Change in Mental Status: No
Current Postoperative Nausea & Vomiting: No
Anesthesia Complications: No
General Anesthetic Recall: No
Unplanned Admission: No
Post Op Hydration Adequate: Yes
--- NOTE | 2025-02-11 08:09 | W.PN.CT ---
Today's Communication / Plan
-
-pod #1
-no issues overnight
-got total 1L LR postop
-drips: Levo 1, Insulin
-CT outputs: 2 meds 160/245; 2 pleur 140/250. UO 725/1475
-continue IS, OOB
-current meds (ASA, Plaivx, Lopressor, Amio, Protonix)
-encourage IS, OOB
Assessment / Plan
-
- MVCAD- s/p CABG x 3 (LOUANN to LAD, GSV to OM, GSV to mid-PDA), ELAA (35mm AtriClip) on 02/10/[address] Norman, pod #1
- HTN/HLD
- Chronic back pain/vertebral fx
- Hx headaches
-b/l rotator cuff in 2010 R and 2017 L
-Meniscal tear
-rhinoplasty
-multiple ortho surgeries
-acute postop blood loss anemia
-acute postop atelectasis
-suspected acute postop pericarditis
-acute postop hypovolemia with subsequent hypervolemia
Discussed patient care with: Nursing and Care Team
Subjective
-
Date of Service: February 11, 2025
Objective Data
-
Lab Results
02/11/25 03:18
02/11/25 03:18
PT 17.2 Sec (11.4-14.6) H 02/10/25 13:49
INR 1.37 02/10/25 13:49
APTT 29.8 Sec (23.4-35.0) 02/10/25 13:49
Vital Signs
Vital Signs
Temp Pulse Resp BP Pulse Ox
99 F 83 16 77/57 97
02/11/25 06:00 02/11/25 07:00 02/11/25 07:00 02/11/25 07:00 02/11/25 07:00
CT Intake/Output/Weight
02/10/25 02/11/25 02/11/25
18:59 06:59 18:59
Intake Total 402.7 / 1540.2 1107.7 / 1540.2 58.1 / 58.1
Output Total 945 / 0 1025 / 0 125 / 125
Balance -542.3 / -519.8 82.7 / -519.8 -66.9 / -66.9
SaO2: 97
Physical Exam
-
General: Awake and AOx3
Cardiovascular: Regular rate & rhythm, No Murmurs and Rub
Respiratory: Decreased Breath Sounds
Sternum: Stable
Incision: Clean
Extremities: No Edema (DPs 1+ b/l)
Abdomen: soft, nontender, nondistended, + decreased bowel sounds
Data Reviewed
-
Lab Results: Results Reviewed
Medications: Active Meds Reviewed
Chest X-Ray: Report Reviewed and Image Reviewed
ECG: Report Reviewed and Image Reviewed
[2025-02-11] MEDS: CALCIUM GLUCONATE 100 IV (08:13)
[2025-02-11] MEDS: PROTONIX 40 MG PO (08:16)
[2025-02-11] MEDS: SENOKOT 8.6 MG PO ×2 (08:16→19:47)
[2025-02-11] MEDS: NEURONTIN 100 MG PO ×3 (08:16→22:17)
[2025-02-11] MEDS: VITAMIN D3 (cholecalciferol) 25 MCG PO (08:16)
[2025-02-11] MEDS: LOW STRENGTH ASPIRIN 81 MG PO (08:16)
[2025-02-11] MEDS: PACERONE 200 MG PO ×3 (08:16→22:16)
[2025-02-11] MEDS: THERAGRAN 1 TABLET PO (08:16)
[2025-02-11] MEDS: PLAVIX 75 MG PO (08:16)
[2025-02-11] MEDS: MAGNESIUM OXIDE 400 MG PO ×2 (08:16→19:47)
[2025-02-11] MEDS: LOPRESSOR 12.5 MG PO (08:16)
[2025-02-11] MEDS: LIDOCAINE 4% PATCH 1 PATCH TOPICAL (08:16)
[2025-02-11] MEDS: BACTROBAN 2% OINTMENT 1 APPLIC NASAL ×2 (08:17→19:46)
[2025-02-11 08:57] LABS: Glucose - Point of Care 118 mg/dl (70-99)
--- NOTE | 2025-02-11 08:58 | W.PN.CARDCBS ---
Addendum entered and electronically signed by Jadon Zhu MD 02/11/25 10:32:
I saw and examined the patient.
The Second Cook And Baker's note was reviewed and I agree with the note.
Comment:
GEN: No distress, awake, Ox3
HEENT: supple, anicteric, mmm, R IJ
LUNGS: CTA, no wheezes/rales
CV: Reg, S1/S2, no rub
ABD: soft, BS+, NT/ND
EXT: No edema
NEURO: Gross non-focal
SKIN: sternotomy
PLan:
Overall doing well s/p CABG. ECG with NSR
Wean Levophed. Creat nl.
Hg at 11.
Cont Amiodarone/metoprolol
Original Note:
Today's Communication / Plan
-
Continue postoperative care
In sinus rhythm
Impression / Plan
-
Primary Carpentry Foreman: Dr. Zhu
Assessment:
MV CAD s/p CABG x 3 (LOUANN to LAD, GSV to OM, GSV to mid-PDA), ARTHUR clip 02/10/25
HTN
HLD
History of bilateral rotator cuff repair
Family history of CAD
Fatty liver disease
Echo 01/29/2025: EF 56%, mild MR, normal LA, normal right heart
Plan:
-patient underwent cardiac catheterization after complaints of dyspnea on exertion and abnormal stress test. Cardiac cath showed multivessel CAD and was referred for bypass which she underwent 02/10/2025
- Status post CABG x 3 Louann to LAD, GSV to OM, GSV to mid PDA, ARTHUR clip 02/10/2025
- Doing well postop day 1
- Remains with some hypotension on levo at 2, wean as able
- EKG and review of telemetry sinus rhythm
- Is noted to have rub on exam
- Hemoglobin 11.4. Continue aspirin, Plavix
- Wean supplemental O2 as able
- Deline as able
- Prior to admission was on Toprol 25 mg twice daily, lisinopril 5 mg nightly. Resume postop as able
- Continue postoperative care. Will continue to follow
Progress Note - Carpentry Foreman
Subjective
Date of Service: February 11, 2025
Reports some postoperative pain in her back particularly behind her shoulder blades. Reports taking deep breath is difficult
Objective
Labs:
02/11/25 03:18
02/11/25 03:18
Labs
Hgb 11.4 g/dL (12.0-16.0) L 02/11/25 03:18
Hct 32.6 % (37.0-47.0) L 02/11/25 03:18
Plt Count 155 10^3/uL (130-400) 02/11/25 03:18
PT 17.2 Sec (11.4-14.6) H 02/10/25 13:49
INR 1.37 02/10/25 13:49
APTT 29.8 Sec (23.4-35.0) 02/10/25 13:49
Sodium 135 mmol/L (135-145) 02/11/25 03:18
Potassium 4.0 mmol/L (3.5-5.1) 02/11/25 03:18
BUN 14 mg/dl (7-17) 02/11/25 03:18
Creatinine 0.6 mg/dL (0.6-1.0) 02/11/25 03:18
Glucose 88 mg/dl (70-99) 02/11/25 03:18
Vital Signs and I&O:
Vital Signs
Temp Pulse Resp BP Pulse Ox
100.5 F H 84 15 88/56 97
02/11/25 08:00 02/11/25 08:00 02/11/25 08:00 02/11/25 08:00 02/11/25 08:23
Vital Signs
Temp Pulse Resp BP Pulse Ox
100.5 F H 84 15 88/56 97
02/11/25 08:00 02/11/25 08:00 02/11/25 08:00 02/11/25 08:00 02/11/25 08:23
Intake & Output
02/09/25 02/10/25 02/11/25 02/12/25
06:59 07:59 07:59 07:59
Intake Total 1540.2 / 1918.5 378.3 / 378.3
Output Total 2059 / 2094 35 / 35
Balance -519.8 / -176.5 343.3 / 343.3
Physical Exam
Physical Exam
GEN: No distress, awake, alert, oriented x3. On supplemental O2
HEENT: supple, anicteric, mmm, EOMI
LUNGS: Diminished breath sounds at bases, no wheezes/rales
CV: Reg, S1/S2, no murmur, positive rub
ABD: soft, BS+, NT/ND
EXT: No cyanosis, clubbing. Trace edema of bilateral lower extremity
NEURO: Gross non-focal
SKIN: Warm, pink, dry. No rash. Sternotomy dressing clean dry and intact. CTs in place
: Betancourt in place
--- NOTE | 2025-02-11 09:00 | PTCARENOTE ---
Patient received from night RN; AAOx3, drowsy but responds spontaneously to RN and follows commands; VSS; SR with occasional PVC's; Friction rub present; Patient complains of dizziness and lightheadedness with positional changes; Epicardial V-wire
present with temporary pacemaker settings VVI 30/ ; +1 DP and radial pulses present; Shallow respirations; Lungs diminished throughout; SpO2 93-97% on 2L NC; CTx4 connected to -20 cm wall suction draining serosanguineous drainage - no tidaling, air
leak, or crepitus noted; Betancourt catheter draining clear, yellow urine; Surgical sites intact; PIVx1; RIJ Cordis with SLIC present and left radial A-line present - all lines zeroed and level; Levo and insulin infusing - see nursing flowsheets for
further details; Calcium gluconate and LR bolus given as per CVNP Keyona C.; See nursing documentation for further information
[2025-02-11 11:45] LABS: Glucose - Point of Care 90 mg/dl (70-99)
[2025-02-11] MEDS: NSS IV (12:07)
[2025-02-11] MEDS: ULTRAM 50 MG PO ×2 (13:20→19:46)
--- NOTE | 2025-02-11 13:39 | PTCARENOTE ---
Patient OOB to chair with cardiac rehab and RN - denies dizziness and lightheadedness throughout; Oxygen weaned to room air; PRN Tramadol given accordingly for pain; Patient resting comfortably in chair at this time
[2025-02-11 14:27] LABS: Glucose - Point of Care 160 mg/dl (70-99)
[2025-02-11] MEDS: CORDARONE 103 MG IV (15:23)
[2025-02-11] MEDS: CORDARONE 259 MG IV (15:27)
--- NOTE | 2025-02-11 18:00 | PTCARENOTE ---
Patient with brief episode of afib with RVR on monitor while sitting in chair this afternoon - patient states she felt dizzy and lightheaded during event; Amiodarone bolus and gtt started as per CVSONNY Raman; Oxygen increased to 1L NC - SpO2 88-90%
on RA; Patient resting comfortably in chair at this time
[2025-02-11] MEDS: LEVOPHED 250 IV (18:17)
--- NOTE | 2025-02-11 19:00 | PTCARENOTE ---
report received from previous RN, walking rounds done. pt in chair, AAOx4, family @ bedside. pt c/o sternal incision pain. see MAR for PRN med administration. VSS. SR on monitor, HR 80s. +friction rub. +peripheral pulses. L radial art line in place,
SBP 100s-110s. Levo gtt infusing @ 1mcg. epicardial V-wire present, set to back up VVI 30, mA 10. RIJ cordis and slic cather in place w KVOs infusing. CVP ~15. bilateral breath sounds present. POX 95% on 1LNC. CT x4 in place to -20 cm wall suction,
drainage WNL; no tidaling, air leak, or crepitus noted. evangelista catheter in place, draining CYU. +BS. abdomen soft, nontender. all surgical sites stable. see worklist for full assessment, VS, and interventions.
[2025-02-11] MEDS: REMOVE LIDOCAINE PATCH 1 PATCH REMOVE (19:47)
[2025-02-11] MEDS: LOPRESSOR PO (19:47)
[2025-02-11] MEDS: LIPITOR 80 MG PO (22:16)
[2025-02-11] MEDS: DILAUDID 0.5 MG IV (22:33)
[2025-02-11] MEDS: ZOFRAN 4 MG IV (22:33)
--- NOTE | 2025-02-11 23:00 | PTCARENOTE ---
no acute changes in assessment. VSS. SR 80s. Levo gtt currently off. Amio gtt maintained. POX 93% on 1LNC. CT output and UO WNL. all surgical sites stable.
[2025-02-12] VITALS (26 sets, daily range): BP systolic 88–125; BP diastolic 56–80; PULSE 97; O2SAT 91–93; BMI 30.6
--- NOTE | 2025-02-12 03:00 | PTCARENOTE ---
no acute changes in assessment. VSS. SR 80s. Levo gtt currently infusing @ 1mcg. Amio gtt maintained. POX 95% on 1LNC. CT output and UO WNL. all surgical sites stable.
--- NOTE | 2025-02-12 03:22 | W.PN.CT ---
Today's Communication / Plan
-
-pod #2
-no issues overnight
-episode of a-fib on 02/11- tx with Amio bolus and drip. In NSR overnight
-drips: Levo 1, Amio 0.5
-CT outputs: 2 meds 45/215; 2 pleur .
-UO 330/775in 12/24 hrs
-Tm 101.6 -encourage IS
-labs pending
-continue IS, OOB
-d/c Betancourt
-current meds (ASA, Plaivx, Lipitor, Midodrine 5 tid, Amio, Protonix). Holding BB while on Levo
-encourage IS, OOB
Assessment / Plan
-
- MVCAD- s/p CABG x 3 (LOUANN to LAD, GSV to OM, GSV to mid-PDA), ELAA (35mm AtriClip) on 02/10/[address] Norman, pod #2
- HTN/HLD
- Chronic back pain/vertebral fx
- Hx headaches
-b/l rotator cuff in 2010 R and 2018 L
-Meniscal tear
-rhinoplasty
-multiple ortho surgeries
-acute postop blood loss anemia
-acute postop atelectasis
-suspected acute postop pericarditis
-acute postop hypovolemia with subsequent hypervolemia
-a-fib on 02/11- tx with Amio bolus and drip
Discussed patient care with: Nursing and Care Team
Subjective
-
Date of Service: February 12, 2025
Objective Data
-
PT 17.2 Sec (11.4-14.6) H 02/10/25 13:49
INR 1.37 02/10/25 13:49
APTT 29.8 Sec (23.4-35.0) 02/10/25 13:49
Vital Signs
Vital Signs
Temp Pulse Resp BP Pulse Ox
100.9 F H 83 15 97/64 94
02/12/25 01:00 02/12/25 01:00 02/12/25 00:45 02/12/25 01:00 02/12/25 01:00
CT Intake/Output/Weight
02/11/25 02/11/25 02/12/25
06:59 18:59 06:59
Intake Total 1107.7 / 1540.2 1767.2 / 2100.4 333.2 / 2100.4
Output Total 1025 / 2060 755 / 890 135 / 890
Balance 82.7 / -519.8 1012.2 / 1210.4 198.2 / 1210.4
SaO2: 94
Physical Exam
-
General: Awake and AOx3
Cardiovascular: Regular rate & rhythm, No Murmurs and Rub
Respiratory: Decreased Breath Sounds
Sternum: Stable
Incision: Clean
Abdomen: soft, nontender, nondistended, + decreased bowel sounds
Extremities: No Edema (DPs 1+ b/l)
Data Reviewed
-
Lab Results: Results Reviewed
Medications: Active Meds Reviewed
Chest X-Ray: Report Reviewed and Image Reviewed
ECG: Report Reviewed and Image Reviewed
[2025-02-12 05:51] LABS: Hematocrit 34.4 % (37.0-47.0); Hemoglobin 11.6 g/dL (12.0-16.0); Mean Corp Hgb Conc. 33.7 g/dL (33.0-37.0); Mean Corpuscular Volume 91.5 fL (81.0-99.0); Platelet Count 155 10^3/uL (130-400); Red Cell Dist. Width 12.9 % (11.5-14.5)
[2025-02-12 06:12] LABS: Blood Urea Nitrogen 15 mg/dl (7-17); Calcium 8.1 mg/dl (8.4-10.2); Carbon Dioxide 28 mmol/L (22-30); Chloride 102 mmol/L (98-107); Estimated Creatinine Clearance 81 ml/min; Glucose 145 mg/dl (70-99); Magnesium 2.0 mg/dl (1.6-2.3); Potassium 4.5 mmol/L (3.5-5.1); Sodium 132 mmol/L (135-145); eGFR > 60.00
[2025-02-12] MEDS: TYLENOL PO (06:13)
--- NOTE | 2025-02-12 07:25 | W.PN.INTV ---
Today's Communication / Plan
Recommendations
Wean oxygen
Increase activity
Amiodarone
Wean norepinephrine
Monitor temperature curve
If patient weaned off norepinephrine and transferred to telemetry-generation engineer will sign off-please call pulmonary if respiratory issues arise
Assessment
-
69-year-old non-smoking female with a history of hypertension, chronic back pain and underlying CAD found to have multivessel CAD and underwent CABG-generation engineer consulted for postoperative ventilator/critical care management 02/10/2025.
Multivessel CAD with preoperative preserved EF
Status post CABG x 3-Liz-LAD, GSV-OM, GSV to mid PDA 02/10/2025-Dr. Norman
Hyperglycemia-blood sugar 183, A1c 5.8
Conditions present prior to admission:
Hypertension.
Hyperlipidemia.
CAD.
Chronic headaches.
Chronic back pain.
Meniscal tear left knee. Bilateral rotator cuff 2010, 2017. Rhinoplasty 1996. Carpal tunnel.
Plan
Remains critically ill on norepinephrine
Tolerated extubation
Wean FiO2
Encourage incentive spirometry
Increase activity
Aspiration precautions
Temperature noted-monitor temperature curve monitor for leukocytosis and signs of infection
Pulmonary artery catheter and arterial line will likely be removed
Pressors to be weaned-on low-dose norepinephrine
Monitor atrial fibrillation
Atrial fibrillation rate controlled
Amiodarone drip continues
Cardiology following
Continue to monitor chest tube output
Follow hemoglobin
Continue to follow platelet count and coags
Transfuse blood product as needed
CT surgery following chest tubes as well
Follow blood sugar
Insulin drip continues
Early nutrition
Early mobilization
DVT prophylaxis
Patient will likely be transferred to telemetry after norepinephrine discontinued-generation engineer will sign off-call pulmonary if respiratory issues arise
Critical care statement: A total of 33 minutes of critical care time was provided for this patient today. This includes management of ventilator, spontaneous breathing trial, arterial blood gases, pressors, of unstable vital signs, evaluation of the
patient at bedside, reviewing the patient's pertinent medical records including radiographs, microbiology, laboratory evaluations, and discussion with primary team and critical care nursing.
Diagnostic data:
CT chest 02/06/2025-no acute findings in the chest, severe coronary artery calcifications
Cardiac catheterization 02/03/2025-severe multivessel CAD involving all the major epicardial vessels including LAD, circumflex and RCA with EF 60%
Subjective Dataa
Subjective Data
Date of Service:
Date of Service: February 12, 2025
Chief Complaint: Supervisor Decorating Follow Up, Pulmonary Follow Up and Vent Management Follow Up
Subjective:
Feels better, no lightheadedness, had some emesis yesterday, no chest pain or abdominal pain
Review of Systems
General: Other (Per HPI)
Objective Data
Data Reviewed
Vital Signs / I&O / Oxygen:
Vital Signs
Temp Pulse Resp BP Pulse Ox
100.9 F H 82 19 97/62 94
02/12/25 07:00 02/12/25 07:00 02/12/25 07:00 02/12/25 07:00 02/12/25 07:00
Intake and Output
02/11/25 02/12/25 02/13/25
06:59 06:59 06:59
Intake Total 1510.4 / 1540.2 2295.3 / 2332.0 36.7 / 36.7
Output Total 1969 1275 / 1320 45 / 45
Balance -459.6 / -519.8 1020.3 / 1012.0 -8.3 / -8.3
SaO2 [CPAP] 96
SaO2 [SIMV] 97
SaO2 94
Nasal Cannula flow liters per 2
minute
Physical Exam
General: Respiratory Distress and Comfortable
HEENT: Normocephalic and Anicteric
Cardiovascular: Regular Rhythm
Respiratory: Wheeze (n), Crackles (n), Rhonchi, Non-Labored Respirations, Accessory Resp Muscle Use (n) and Stridor
GI: Soft, Non Distended and Non Tender
Neurology: Awake, Alert and No Motor Deficits
Skin: Warm, Good Color, Cyanosis (n), Jaundice (n) and Rash (n)
Labs/Micro/Reports
Lab Data
02/12/25 05:35
02/12/25 05:35
[2025-02-12] MEDS: ULTRAM 50 MG PO (07:48)
[2025-02-12] MEDS: LASIX 40 MG IV ×2 (08:11→14:26)
[2025-02-12] MEDS: PROTONIX 40 MG PO (08:11)
[2025-02-12] MEDS: LIDOCAINE 4% PATCH 1 PATCH TOPICAL (08:11)
[2025-02-12] MEDS: BACTROBAN 2% OINTMENT 1 APPLIC NASAL ×2 (08:11→20:08)
[2025-02-12] MEDS: THERAGRAN 1 TABLET PO (08:11)
[2025-02-12] MEDS: LOW STRENGTH ASPIRIN 81 MG PO (08:12)
[2025-02-12] MEDS: PLAVIX 75 MG PO (08:12)
[2025-02-12] MEDS: VITAMIN D3 (cholecalciferol) 25 MCG PO (08:15)
[2025-02-12] MEDS: NEURONTIN 100 MG PO ×3 (08:15→21:50)
[2025-02-12] MEDS: SENOKOT 8.6 MG PO ×2 (08:15→20:08)
[2025-02-12] MEDS: MAGNESIUM OXIDE 400 MG PO ×2 (08:16→20:08)
[2025-02-12] MEDS: PACERONE 200 MG PO ×3 (08:16→21:50)
--- NOTE | 2025-02-12 08:40 | PTCARENOTE ---
Patient received from night shift manager resting oob in chair, AAO X 3, c/o moderate sternal pain, medicated for such (see MAR). RIJ Cordis/SLIC present. L radial arteria line present - leveled, flushed, and calibrated w/good waveform returned. Mediastinal
chest tubes x 2, L and R pleural chest tubes - both to -20cm suction w/no air leaks noted. Epicardial V-wire to pulse generator set to back up rate 30bpm, no spikes noted. Betancourt catheter to gravity. All procedural sites stable. Patient updated to
plan of care for the day, in agreement. See work list for full assessment and interventions performed.
--- NOTE | 2025-02-12 12:11 | PTCARENOTE ---
Chest tubes d/c'd as ordered, patient tolerated well. VS obtained, assessment stable. Patient resting comfortably.
--- NOTE | 2025-02-12 12:54 | W.PN.CARDCBS ---
Addendum entered and electronically signed by Diomedes Lennon DO 02/12/25 15:32:
I saw and examined the patient.
The Paraprofessional Aide Teacher's note was reviewed and I agree with the note.
Comment:
Hx: patient underwent cardiac catheterization after complaints of dyspnea on exertion and abnormal stress test. Cardiac cath showed multivessel CAD and was referred for bypass which she underwent 02/10/2025
- Status post CABG x 3 Liz to LAD, GSV to OM, GSV to mid PDA, ARTHUR clip 02/10/[address] surgical care
Remains sinus rhythm on IV amiodarone
Consider anticoagulation if there is recurrent atrial fibrillation.
Continue midodrine for blood pressure support.
Continue dual antiplatelet therapy.
Discussed with nursing and family at bedside
Original Note:
Today's Communication / Plan
-
in SR on IV amio gtt
continue post op care
Impression / Plan
-
Primary Brick Yard Hand: Dr. Zhu
Assessment:
MV CAD s/p CABG x 3 (LIZ to LAD, GSV to OM, GSV to mid-PDA), ARTHUR clip 02/10/25
HTN
HLD
History of bilateral rotator cuff repair
Family history of CAD
Fatty liver disease
Echo 01/29/2025: EF 56%, mild MR, normal LA, normal right heart
Plan:
-patient underwent cardiac catheterization after complaints of dyspnea on exertion and abnormal stress test. Cardiac cath showed multivessel CAD and was referred for bypass which she underwent 02/10/2025
- Status post CABG x 3 Liz to LAD, GSV to OM, GSV to mid PDA, ARTHUR clip 02/10/2025
- with some brief afib overnight, now back in SR on IV amiodarone @0.5
- with relative hypotension, on midodrine 5mg TID
- hgb 11.6. continue asa, plavix
- Wean supplemental O2 as able. for IV lasix this afternoon
- Prior to admission was on Toprol 25 mg twice daily, lisinopril 5 mg nightly. Resume postop as able
- Continue postoperative care, OOB/IS
Progress Note - Brick Yard Hand
Subjective
Date of Service: February 12, 2025
Reports feeling much improved from overnight. No present pain
Objective
Labs:
02/12/25 05:35
Labs
Hgb 11.6 g/dL (12.0-16.0) L 02/12/25 05:35
Hct 34.4 % (37.0-47.0) L 02/12/25 05:35
Plt Count 155 10^3/uL (130-400) 02/12/25 05:35
PT 17.2 Sec (11.4-14.6) H 02/10/25 13:49
INR 1.37 02/10/25 13:49
APTT 29.8 Sec (23.4-35.0) 02/10/25 13:49
Sodium 132 mmol/L (135-145) L 02/12/25 05:35
Potassium 4.5 mmol/L (3.5-5.1) 02/12/25 05:35
BUN 15 mg/dl (7-17) 02/12/25 05:35
Creatinine 0.7 mg/dL (0.6-1.0) 02/12/25 05:35
Glucose 145 mg/dl (70-99) H 02/12/25 05:35
Vital Signs and I&O:
Vital Signs
Temp Pulse Resp BP Pulse Ox
98.3 F 86 98 93
02/12/25 12:00 02/12/25 12:00 02/12/25 12:00 02/12/25 12:00 02/12/25 12:00
Vital Signs
Temp Pulse Resp BP Pulse Ox
98.3 F 86 9866 93
02/12/25 12:00 02/12/25 12:00 02/12/25 12:00 02/12/25 12:00 02/12/25 12:00
Intake & Output
02/10/25 02/11/25 02/12/25 02/13/25
07:59 07:59 07:59 07:59
Intake Total 1540.2 / 1918.5 2302.2 / 2818.9 663.5 / 663.5
Output Total 2059 / 2094 1230 / 1290 1045 / 1045
Balance -519.8 / -176.5 1072.2 / 1528.9 -381.5 / -381.5
Physical Exam
Physical Exam
GEN: No distress, awake, alert, oriented x3. on supp O2
HEENT: supple, anicteric, mmm, eomi
LUNGS: clear anterolaterally, no wheezes
CV: Reg, S1/S2, no murmur
ABD: soft, NT/ND
EXT: No cyanosis, clubbing. trace edema of B/L LE
NEURO: Gross non-focal
SKIN: Warm, pink, dry. No rash. Sternotomy dressing c/d/i.
[2025-02-12] MEDS: NSS 500 IV (13:43)
[2025-02-12] MEDS: TYLENOL 975 MG PO ×2 (13:44→21:50)
[2025-02-12 14:19] LABS: Blood Urea Nitrogen 15 mg/dl (7-17); Calcium 7.9 mg/dl (8.4-10.2); Carbon Dioxide 31 mmol/L (22-30); Chloride 100 mmol/L (98-107); Estimated Creatinine Clearance 71 ml/min; Glucose 142 mg/dl (70-99); Potassium 4.2 mmol/L (3.5-5.1); Sodium 131 mmol/L (135-145); eGFR > 60.00
[2025-02-12] MEDS: ZOFRAN 4 MG IV (15:58)
--- NOTE | 2025-02-12 16:03 | PTCARENOTE ---
VS obtained, assessment stable. Patient assisted to bathroom voided. Settled to chair, c/o nausea, medicated for such with good response. Resting comfortably.
--- NOTE | 2025-02-12 16:35 | CM ---
Reviewed chart. Tried to see Mrs. Herrera to review discharge plans. She was sleeping. Will try to see her tomorrow. Prior to admission she resides alone in a two story home with one step to enter. A friend is planning on staying with her when
ready for discharge. Medical work-up in progress. The discharge plan is to return home with her friend staying with her and a home visit by the Transitional Care Nurse when medically stable.
--- NOTE | 2025-02-12 20:00 | PTCARENOTE ---
Patient received sitting in chair, drowsy, easily arousable, but oriented x3. NSR on monitor. Palpable pulses throughout. Lungs diminished bibasilar, pulse ox 93% on 2L. Patient able to pull 1000 on IS. Abdomen round obese with hypoactive bowel
sounds. + flatus. poor appetite noted. Sternal aquacell with old drainage noted. CT sites x4 clean dry and intact. V wires insulated. Right groin and right leg sites, approximated, open to air. #18 g in right wrist flushed and patent. RIJ
cordis with KVO. Call ashton within reach, plan of care discussed.
[2025-02-12] MEDS: REMOVE LIDOCAINE PATCH 1 PATCH REMOVE (20:08)
[2025-02-12] MEDS: LIPITOR 80 MG PO (21:50)
[2025-02-13] VITALS (14 sets, daily range): BP systolic 94–128; BP diastolic 58–81; PULSE 93; O2SAT 93; BMI 30.1
--- NOTE | 2025-02-13 | PTCARENOTE ---
Patient reassessed, resting in the chair, no changes in assessment
[2025-02-13 04:02] LABS: Hematocrit 29.9 % (37.0-47.0); Hemoglobin 10.4 g/dL (12.0-16.0); Mean Corp Hgb Conc. 34.8 g/dL (33.0-37.0); Mean Corpuscular Volume 89.5 fL (81.0-99.0); Platelet Count 140 10^3/uL (130-400); Red Cell Dist. Width 12.7 % (11.5-14.5)
--- NOTE | 2025-02-13 04:17 | PTCARENOTE ---
Patient OOB to void, offers no complaints. Labs sent, call ashton within reach
[2025-02-13 04:23] LABS: Blood Urea Nitrogen 15 mg/dl (7-17); Calcium 8.1 mg/dl (8.4-10.2); Carbon Dioxide 32 mmol/L (22-30); Chloride 101 mmol/L (98-107); Estimated Creatinine Clearance 80 ml/min; Glucose 119 mg/dl (70-99); Magnesium 2.1 mg/dl (1.6-2.3); Potassium 4.0 mmol/L (3.5-5.1); Sodium 134 mmol/L (135-145); eGFR > 60.00
[2025-02-13] MEDS: TYLENOL 975 MG PO ×3 (05:24→22:23)
--- NOTE | 2025-02-13 07:02 | W.PN.CT ---
Today's Communication / Plan
-
-pod #3
-no issues overnight
-wean off O2
-encourage IS, OOB, ambulate
Assessment / Plan
-
- MVCAD- s/p CABG x 3 (LOUANN to LAD, GSV to OM, GSV to mid-PDA), ELAA (35mm AtriClip) on 02/10/[address] Norman, pod #3
- HTN/HLD
- Chronic back pain/vertebral fx
- Hx headaches
-b/l rotator cuff in 2010 R and 2018 L
-Meniscal tear
-rhinoplasty
-multiple ortho surgeries
-acute postop blood loss anemia
-acute postop atelectasis
-suspected acute postop pericarditis
-acute postop hypovolemia with subsequent hypervolemia
-a-fib on 02/11- tx with Amio bolus and drip
Discussed patient care with: Nursing and Care Team
Subjective
-
Date of Service: February 13, 2025
Objective Data
-
Lab Results
02/13/25 03:44
02/13/25 03:44
PT 17.2 Sec (11.4-14.6) H 02/10/25 13:49
INR 1.37 02/10/25 13:49
APTT 29.8 Sec (23.4-35.0) 02/10/25 13:49
Vital Signs
Vital Signs
Temp Pulse Resp BP Pulse Ox
97.6 F 80 17 104/65 93
02/13/25 04:00 02/13/25 05:45 02/12/25 16:00 02/13/25 03:26 02/12/25 20:00
CT Intake/Output/Weight
02/12/25 02/13/25 02/13/25
18:59 06:59 18:59
Intake Total 1013.6 / 1013.6
Output Total 1690 / 2390 700 / 2390
Balance -676.4 / -1376.4 -700 / -1376.4
SaO2: 93
Physical Exam
-
General: Awake and AOx3
Cardiovascular: Regular rate & rhythm, No Murmurs and Rub
Respiratory: Decreased Breath Sounds
Sternum: Stable
Incision: Clean
Abdomen: soft, nontender, nondistended, + decreased bowel sounds
Extremities: No Edema (DPs 1+ b/l)
Data Reviewed
-
Lab Results: Results Reviewed
Medications: Active Meds Reviewed
Chest X-Ray: Report Reviewed and Image Reviewed
ECG: Report Reviewed and Image Reviewed
--- NOTE | 2025-02-13 08:30 | PTCARENOTE ---
Patient received from overnight caregiver resting oob in chair, AAO X 3, states pain controlled at this time. NSR via cm, SaO2 @ 93% on 2lnc. RIJ Cordis w/kvo infusing. All procedural sites stable. Epicardial V-wire, insulated to chest wall. Patient updated
to plan of care for the day, in agreement. See work list for full assessment and interventions performed.
[2025-02-13] MEDS: BACTROBAN 2% OINTMENT 1 APPLIC NASAL ×2 (08:34→20:10)
[2025-02-13] MEDS: LIDOCAINE 4% PATCH 1 PATCH TOPICAL (08:34)
[2025-02-13] MEDS: THERAGRAN 1 TABLET PO (08:35)
[2025-02-13] MEDS: PROTONIX 40 MG PO (08:35)
[2025-02-13] MEDS: LOW STRENGTH ASPIRIN 81 MG PO (08:35)
[2025-02-13] MEDS: SENOKOT 8.6 MG PO ×2 (08:35→20:11)
[2025-02-13] MEDS: MAGNESIUM OXIDE 400 MG PO ×2 (08:35→20:11)
[2025-02-13] MEDS: NEURONTIN 100 MG PO ×3 (08:35→22:23)
[2025-02-13] MEDS: PLAVIX 75 MG PO (08:35)
[2025-02-13] MEDS: VITAMIN D3 (cholecalciferol) 25 MCG PO (08:35)
[2025-02-13] MEDS: PACERONE 200 MG PO ×3 (08:35→22:23)
[2025-02-13] MEDS: REFRESH EYE DROPS (PF) 1 DROPS OPHTH (08:44)
[2025-02-13] MEDS: LASIX 40 MG IV (10:43)
[2025-02-13] MEDS: NSS IV (11:10)
--- NOTE | 2025-02-13 13:55 | PTCARENOTE ---
Patient received from day shift RN; AAOx3, responds spontaneously to RN and follows commands; VSS; NSR on monitor; Epicardial V-wire insulated; +1 DP and +2 radial pulses present; Shallow respirations; Lungs diminished at bases; SpO2 92-95% on 2L
NC; Poor appetite; Patient frequently urinating clear, yellow urine in bathroom; Surgical sites intact; PIVx1; RIJ Cordis with KVO infusing; See nursing documentation for further information
--- NOTE | 2025-02-13 16:22 | CM ---
Reviewed chart. Met with Miss Herrera to review discharge plans. She states prior to admission she resides alone in a two story home with one step to enter. She states she has a full flight of steps to get to bedroom/full bathroom. She states
she has a powder room on the first floor. She states she has a stair glide at home if needed. She states prior to admission she was independent with ambulation and adls. She states she has a walker, Single point cane, stair glide, and wheelchair
at home. She states she has a prescription plan with [facility]. She states her friend Fe will be staying with her for a month to assist in her care if needed. She states her dogs will be away for two months. She has someone watching her dogs.
We reviewed a home visit by the Transitional Care Nurse. She is agreeable to a home visit. Medical work-up in progress. The discharge plan is to return home with her friend staying a month and a home visit by the Transitional Care Nurse when
medically stable.
--- NOTE | 2025-02-13 17:17 | PTCARENOTE ---
Patient ambulating in hallway with RN; RIJ Cordis removed at bedside by RN - no complications noted at this time; Patient resting comfortably in chair at this time
--- NOTE | 2025-02-13 18:00 | W.PN.CARDCBS ---
Today's Communication / Plan
-
Continue postop care
No further episodes of A-fib� continue telemetry monitoring
Impression / Plan
-
Primary Well Drill Operator Rotary Drill: Dr. Zhu
Assessment:
MV CAD s/p CABG x 3 (LOUANN to LAD, GSV to OM, GSV to mid-PDA), ARTHUR clip 02/10/25
HTN
HLD
History of bilateral rotator cuff repair
Family history of CAD
Fatty liver disease
Echo 01/29/2025: EF 56%, mild MR, normal LA, normal right heart
Plan:
-patient underwent cardiac catheterization after complaints of dyspnea on exertion and abnormal stress test. Cardiac cath showed multivessel CAD and was referred for bypass which she underwent 02/10/2025
- Status post CABG x 3 Louann to LAD, GSV to OM, GSV to mid PDA, ARTHUR clip 02/10/2025
- Continue asa, plavix and high intensity statin
- With some brief afib post-op, now back in SR
- Cont PO amiodarone
- If she has further episodes of atrial fibrillation will need to consider anticoagulation
- Continue IV lasix to optimize her volume status
- Wean supplemental O2 as able.
- With relative hypotension, on midodrine 5mg TID
- Prior to admission was on Toprol 25 mg twice daily, lisinopril 5 mg nightly which are held. Resume postop as able.
Progress Note - Well Drill Operator Rotary Drill
Subjective
Date of Service: February 13, 2025
Acute overnight events. Patient is resting comfortably in bed. Tells me she had some lightheadedness and dizziness with change in position and the blood pressure has been running low. Also reporting fatigue.
Objective
Labs:
02/13/25 03:44
02/13/25 03:44
Labs
Hgb 10.4 g/dL (12.0-16.0) L 02/13/25 03:44
Hct 29.9 % (37.0-47.0) L 02/13/25 03:44
Plt Count 140 10^3/uL (130-400) 02/13/25 03:44
PT 17.2 Sec (11.4-14.6) H 02/10/25 13:49
INR 1.37 02/10/25 13:49
APTT 29.8 Sec (23.4-35.0) 02/10/25 13:49
Sodium 134 mmol/L (135-145) L 02/13/25 03:44
Potassium 4.0 mmol/L (3.5-5.1) 02/13/25 03:44
BUN 15 mg/dl (7-17) 02/13/25 03:44
Creatinine 0.7 mg/dL (0.6-1.0) 02/13/25 03:44
Glucose 119 mg/dl (70-99) H 02/13/25 03:44
Vital Signs and I&O:
Vital Signs
Temp Pulse Resp BP Pulse Ox
98.2 F 95 16 128/68 94
02/13/25 15:38 02/13/25 17:15 02/13/25 15:38 02/13/25 15:38 02/13/25 17:15
Vital Signs
Temp Pulse Resp BP Pulse Ox
98.2 F 95 16 128/68 94
02/13/25 15:38 02/13/25 17:15 02/13/25 15:38 02/13/25 15:38 02/13/25 17:15
Intake & Output
02/11/25 02/12/25 02/13/25 02/14/25
06:59 06:59 06:59 06:59
Intake Total 1510.4 / 1540.2 2295.3 / 2332.0 1013.6 / 1013.6 550 / 550
Output Total 1969 1275 / 1320 2390 / 2390 2725 / 2725
Balance -459.6 / -519.8 1020.3 / 1012.0 -1376.4 / -1376.4 -2175 / -2175
Physical Exam
Physical Exam
Gen: NAD, AAOx3
HEENT: NC/AT, sclera anicteric
Neck: No JVD
CV: RRR, NL s1/s2, no M/R/G
Lungs: CTAB
Abd: S/ND
Ext: No LE edema
Skin: Warm, dry
Neuro: Non-focal
[2025-02-13] MEDS: LOPRESSOR 12.5 MG PO (20:11)
[2025-02-13] MEDS: REMOVE LIDOCAINE PATCH REMOVE (21:00)
--- NOTE | 2025-02-13 21:00 | PTCARENOTE ---
Received patient from al RN. Patient resting comfortably in chair. Ambulated to bathroom with x1 assist and rolling walker. Reports feeling dizzy and lightheaded with position changes and upon standing. AAOx3. Denies pain. VSS, NSR on
telemetry. 2LNC, Dyspneic on exertion. Sternal dressing intact with scant old drainage present. 1 PIV in R wrist- patent. Patient reports she has not had a bowel movement in several days; +BS, abdomen soft and nontender. Senna administered as
ordered. Assessments and vital sign trends documented in flowsheets. Care ongoing
[2025-02-13] MEDS: LIPITOR 80 MG PO (22:23)
[2025-02-14] VITALS (16 sets, daily range): BP systolic 96–129; BP diastolic 60–95; PULSE 86; O2SAT 95; BMI 28.8
--- NOTE | 2025-02-14 03:08 | W.PN.CT ---
Today's Communication / Plan
-
-pod #4
-no issues overnight
-diuresed well with iv Lasix on 02/13- UO 350/3275 in 12/24 hrs
-wean off O2 as tolerated - pOx 94% on 2L
-on Midodrine for hypotension - improving. Lopressor resumed
-labs pending
-2v-CXR today
-encourage IS, OOB, ambulate
-possible d/c soon
Assessment / Plan
-
- MVCAD- s/p CABG x 3 (LOUANN to LAD, GSV to OM, GSV to mid-PDA), ELAA (35mm AtriClip) on 02/10/[address] Norman, pod #4
- HTN/HLD
- Chronic back pain/vertebral fx
- Hx headaches
-b/l rotator cuff in 2010 R and 2018 L
-Meniscal tear
-rhinoplasty
-multiple ortho surgeries
-acute postop blood loss anemia
-acute postop atelectasis
-suspected acute postop pericarditis
-acute postop hypovolemia with subsequent hypervolemia
-a-fib on 02/11- tx with Amio bolus and drip
Discussed patient care with: Nursing and Care Team
Subjective
-
Date of Service: February 14, 2025
Objective Data
-
PT 17.2 Sec (11.4-14.6) H 02/10/25 13:49
INR 1.37 02/10/25 13:49
APTT 29.8 Sec (23.4-35.0) 02/10/25 13:49
Vital Signs
Vital Signs
Temp Pulse Resp BP Pulse Ox
98.2 F 89 18 108/68 94
02/13/25 15:38 02/14/25 02:00 02/13/25 20:04 02/14/25 00:12 02/14/25 03:05
CT Intake/Output/Weight
02/13/25 02/13/25 02/14/25
06:59 18:59 06:59
Intake Total 550 / 670 120 / 670
Output Total 700 / 2390 2925 / 3275 350 / 3275
Balance -700 / -1376.4 -2375 / -2605 -230 / -2605
SaO2: 94
Physical Exam
-
General: Awake and AOx3
Cardiovascular: Regular rate & rhythm, No Murmurs and No Rub
Respiratory: Decreased Breath Sounds
Sternum: Stable
Incision: Clean, Dry and Intact
Data Reviewed
-
Lab Results: Results Reviewed
Medications: Active Meds Reviewed
Chest X-Ray: Report Reviewed and Image Reviewed
ECG: Report Reviewed and Image Reviewed
[2025-02-14] MEDS: TYLENOL 975 MG PO ×2 (06:05→21:35)
[2025-02-14 06:26] LABS: Hematocrit 32.0 % (37.0-47.0); Hemoglobin 11.2 g/dL (12.0-16.0); Mean Corp Hgb Conc. 35.0 g/dL (33.0-37.0); Mean Corpuscular Volume 90.1 fL (81.0-99.0); Platelet Count 190 10^3/uL (130-400); Red Cell Dist. Width 12.6 % (11.5-14.5)
[2025-02-14 06:48] LABS: Blood Urea Nitrogen 17 mg/dl (7-17); Calcium 8.3 mg/dl (8.4-10.2); Carbon Dioxide 32 mmol/L (22-30); Chloride 102 mmol/L (98-107); Estimated Creatinine Clearance 79 ml/min; Glucose 105 mg/dl (70-99); Magnesium 2.0 mg/dl (1.6-2.3); Potassium 3.8 mmol/L (3.5-5.1); Sodium 134 mmol/L (135-145); eGFR > 60.00
[2025-02-14] MEDS: SENOKOT 8.6 MG PO ×2 (08:25→19:51)
[2025-02-14] MEDS: LOW STRENGTH ASPIRIN 81 MG PO (08:26)
[2025-02-14] MEDS: LOPRESSOR 12.5 MG PO ×2 (08:26→19:51)
[2025-02-14] MEDS: THERAGRAN 1 TABLET PO (08:26)
[2025-02-14] MEDS: PACERONE 200 MG PO ×3 (08:26→21:35)
[2025-02-14] MEDS: VITAMIN D3 (cholecalciferol) 25 MCG PO (08:26)
[2025-02-14] MEDS: MAGNESIUM OXIDE 400 MG PO ×2 (08:26→19:51)
[2025-02-14] MEDS: PLAVIX 75 MG PO (08:26)
[2025-02-14] MEDS: PROTONIX 40 MG PO (08:26)
[2025-02-14] MEDS: BACTROBAN 2% OINTMENT 1 APPLIC NASAL (08:27)
[2025-02-14] MEDS: LIDOCAINE 4% PATCH TOPICAL (08:29)
[2025-02-14] MEDS: NEURONTIN PO (08:41)
--- NOTE | 2025-02-14 09:03 | PTCARENOTE ---
Received pt from tap builder RN at 0700; NSR 1st AVB and VSS; Epicardial V wire insulated; Lungs diminished; IS to 750; positive bowel sounds, pt passing flatus; pt voiding yellow urine; palpable radial pulses and weak lower extremity pulses; +1
lower extremity edema noted; all surgical sites C/D/I; see nursing documentation for further details.
--- NOTE | 2025-02-14 09:46 | CM ---
Reviewed chart. Met with Miss Aden and her friend Fe to review discharge plans. She states she is feeling better and maybe able to go home soon. Reviewed a home visit by the Transitional Care Nurse and she is agreeable to a home visit.
Prior to admission she resides alone in a two story home with one step to enter. She has a full flight of steps to get to bedroom/full bathroom. She has a powder room on the first floor. She has a stair glide at home if needed. Prior to
admission she was independent with ambulation and adls. She has a walker, Single point cane, stair glide, and wheelchair at home. She has a prescription plan with [facility]. Her friend Fe will be staying with her for a month to assist in her
care if needed. Her dogs will be away for two months. She has someone watching her dogs. Medical work-up in progress. The discharge plan is to return home with her friend staying a month and a home visit by the Transitional Care Nurse when
medically stable.
--- NOTE | 2025-02-14 12:40 | PTCARENOTE ---
Assessment unchanged; NSR on monitor and VSS; pt resting comfortably in chair.
[2025-02-14] MEDS: TYLENOL PO (14:13)
[2025-02-14] MEDS: NSS IV (14:13)
--- NOTE | 2025-02-14 15:46 | W.PN.CARDCBS ---
Today's Communication / Plan
-
-Multivessel Coronary artery disease:
patient underwent cardiac catheterization after complaints of dyspnea on exertion and abnormal stress test. Cardiac cath showed multivessel CAD and was referred for bypass which she underwent 02/10/2025
Status post CABG x 3 Liz to LAD, GSV to OM, GSV to mid PDA, ARTHUR clip 02/10/2025
Continue asa, plavix and high intensity statin
Wean O2 as tolerated
Post op Atrial fibrillation
brief afib post-op, now back in SR
Cont PO amiodarone
If she has further episodes of atrial fibrillation will need to consider anticoagulation
Hypertension:
Reasonably well controlled.
Post op othostatic hypotension:
midodrine 5mg TID
Impression / Plan
-
Primary Test Engine Operator: Dr. Zhu
Assessment:
MV CAD s/p CABG x 3 (LIZ to LAD, GSV to OM, GSV to mid-PDA), ARTHUR clip 02/10/25
post op afib
HTN
HLD
History of bilateral rotator cuff repair
Family history of CAD
Fatty liver disease
Echo 01/29/2025: EF 56%, mild MR, normal LA, normal right heart
Plan:
-Multivessel Coronary artery disease:
patient underwent cardiac catheterization after complaints of dyspnea on exertion and abnormal stress test. Cardiac cath showed multivessel CAD and was referred for bypass which she underwent 02/10/2025
Status post CABG x 3 Liz to LAD, GSV to OM, GSV to mid PDA, ARTHUR clip 02/10/2025
Continue asa, plavix and high intensity statin
Wean O2 as tolerated
Post op Atrial fibrillation
brief afib post-op, now back in SR
Cont PO amiodarone
If she has further episodes of atrial fibrillation will need to consider anticoagulation
Hypertension:
Reasonably well controlled.
Post op othostatic hypotension:
midodrine 5mg TID
She lives independently : Does she need short SNIF stay until she is better able to care for herself
Progress Note - Test Engine Operator
Subjective
Date of Service: February 14, 2025
Fatigued but generally doing okay
Objective
Labs:
02/14/25 06:00
02/14/25 06:01
Labs
Hgb 11.2 g/dL (12.0-16.0) L 02/14/25 06:00
Hct 32.0 % (37.0-47.0) L 02/14/25 06:00
Plt Count 190 10^3/uL (130-400) D 02/14/25 06:00
PT 17.2 Sec (11.4-14.6) H 02/10/25 13:49
INR 1.37 02/10/25 13:49
APTT 29.8 Sec (23.4-35.0) 02/10/25 13:49
Sodium 134 mmol/L (135-145) L 02/14/25 06:01
Potassium 3.8 mmol/L (3.5-5.1) 02/14/25 06:01
BUN 17 mg/dl (7-17) 02/14/25 06:01
Creatinine 0.7 mg/dL (0.6-1.0) 02/14/25 06:01
Glucose 105 mg/dl (70-99) H 02/14/25 06:01
Vital Signs and I&O:
Vital Signs
Temp Pulse Resp BP Pulse Ox
98.4 F 84 20 129/67 93
02/14/25 12:41 02/14/25 11:30 02/14/25 12:41 02/14/25 10:55 02/14/25 12:41
Vital Signs
Temp Pulse Resp BP Pulse Ox
98.4 F 84 20 129/67 93
02/14/25 12:41 02/14/25 11:30 02/14/25 12:41 02/14/25 10:55 02/14/25 12:41
Intake & Output
02/11/25 02/12/25 02/13/25 02/14/25
23:59 23:59 23:59 23:59
Intake Total 2709.8 / 2750.3 1293.2 / 1293.2 670 / 670 120 / 120
Output Total 1440 / 1475 2040 / 2040 3975 / 3975 850 / 850
Balance 1269.8 / 1275.3 -746.8 / -746.8 -3305 / -3305 -730 / -730
Physical Exam
Physical Exam
GEN: No distress, awake, Ox3. Sitting in chair
HEENT: NC/AT, anicteric
LUNGS: Clear in antior and lateral lung dinh.
CV: Reg, S1/S2, no rub
EXT: No edema
NEURO: Gross non-focal
SKIN: sternotomy
--- NOTE | 2025-02-14 16:52 | PTCARENOTE ---
NSR on monitor and VSS; assessment unchanged; pt ambulating in room with RN.
[2025-02-14] MEDS: REMOVE LIDOCAINE PATCH REMOVE (19:51)
--- NOTE | 2025-02-14 20:43 | PTCARENOTE ---
Patient received as transfer from CVICU. Presently OOB to the chair. Patient denies pain at this time, states she is feeling better every day. Reports some nausea when taking pills but denies vomiting. Lightheaded and dizzy at times, primarily when
first getting up from the chair or bed. Sternal incision with aquacell intact, scant amount of old drainage noted. Chest tube sites ELIZABETH, sutures present. Temp V wire insulated, box present in the room but not connected. SR with occasional PVCs on
telemetry. Oxygen saturation initially 95% on 2L, weaned supplemental O2 down to 1L, SaO2 96% on 1L. Call ashton within reach. Plan of care discussed. Care ongoing.
[2025-02-14] MEDS: LIPITOR 80 MG PO (21:35)
[2025-02-14] MEDS: KCL 20 MEQ PO (21:35)
[2025-02-14 22:19] LABS: Glucose - Point of Care 134 mg/dl (70-99)
[2025-02-15] VITALS (7 sets, daily range): BP systolic 123–156; BP diastolic 67–81; PULSE 95; O2SAT 94–95; BMI 29.2
[2025-02-15 04:04] LABS: Blood Urea Nitrogen 14 mg/dl (7-17); Calcium 8.5 mg/dl (8.4-10.2); Carbon Dioxide 29 mmol/L (22-30); Chloride 104 mmol/L (98-107); Estimated Creatinine Clearance 92 ml/min; Glucose 100 mg/dl (70-99); Magnesium 2.0 mg/dl (1.6-2.3); Potassium 3.9 mmol/L (3.5-5.1); Sodium 135 mmol/L (135-145); eGFR > 60.00
[2025-02-15] MEDS: CALCIUM GLUCONATE 130 MG IV (06:04)
[2025-02-15] MEDS: TYLENOL PO (06:07)
--- NOTE | 2025-02-15 08:10 | W.PN.CT ---
Addendum entered and electronically signed by Paul Norman MD 02/15/25 09:52:
I saw and examined the patient.
The PA's note was reviewed and I agree with the note.
Comment:
JHONATHAN 4:
POD#5 s/p CABG x 3, ELAA
Doing well.� Minor dizziness with ambulation to bathroom.� No significant hypotension.� AVSS.� RA.� No gtts.� No drains.� UO: spontaneous, adequate, creat 0.6.� Tolerating PO.� Neuro: intact.�
-��������� D/C home today
Original Note:
Today's Communication / Plan
-
-No major issues overnight
-Pt states she had an episode of dizziness overnight while going to bathroom. Advised not to get up at OOB abruptly but to sit on side of bed x ~ 1 min
-BP has improved. Midodrine added
-Lopressor switched to Toprol XL 12.5 bid
-Cont. ASA/Plavix
-Holding narcotics/sedatives
-Encourage use of IS
-OOB into chair/Ambulate
-Home later today vs tomorrow
Assessment / Plan
-
- MVCAD- s/p CABG x 3 (LOUANN to LAD, GSV to OM, GSV to mid-PDA), ELAA (35mm AtriClip) on 02/10/[address] Norman, pod #5
- HTN/HLD
- Chronic back pain/vertebral fx
- Hx headaches
-b/l rotator cuff in 2010 R and 2018 L
-Meniscal tear
-rhinoplasty
-multiple ortho surgeries
-acute postop blood loss anemia
-acute postop atelectasis
-suspected acute postop pericarditis
-acute postop hypovolemia with subsequent hypervolemia
-a-fib on 02/11- tx with Amio bolus and drip
Discussed patient care with: Cardiology, Nursing, Respiratory Therapy, Pharmacy and Care Team
Subjective
-
Date of Service: February 15, 2025
Pt c/o one episode of dizziness overnight
Objective Data
-
Lab Results
02/14/25 06:00
02/15/25 03:36
PT 17.2 Sec (11.4-14.6) H 02/10/25 13:49
INR 1.37 02/10/25 13:49
APTT 29.8 Sec (23.4-35.0) 02/10/25 13:49
Vital Signs
Vital Signs
Temp Pulse Resp BP Pulse Ox
98.7 F 95 18 129/69 94
02/15/25 07:53 02/15/25 08:00 02/15/25 07:53 02/15/25 07:52 02/15/25 07:53
CT Intake/Output/Weight
02/14/25 02/15/25 02/15/25
18:59 06:59 18:59
Intake Total 480 / 480
Output Total 600 / 1275 675 / 1275
Balance -120 / -795 -675 / -795
SaO2: 94 (RA)
Physical Exam
-
General: Awake, Oriented and AOx3
Cardiovascular: Regular rate & rhythm, No Murmurs, No Rub and No Gallop
Respiratory: Clear
Sternum: Stable
Incision: Clean, Dry, Intact and Dressing Intact
Extremities: Other (+trace edema)
Data Reviewed
-
Lab Results: Results Reviewed
Medications: Active Meds Reviewed
Chest X-Ray: Report Reviewed and Image Reviewed
ECG: Report Reviewed and Image Reviewed
[2025-02-15] MEDS: TOPROL XL 12.5 MG PO (09:25)
[2025-02-15] MEDS: LOW STRENGTH ASPIRIN 81 MG PO (09:25)
[2025-02-15] MEDS: PROTONIX 40 MG PO (09:25)
[2025-02-15] MEDS: PLAVIX 75 MG PO (09:26)
[2025-02-15] MEDS: SENOKOT 8.6 MG PO (09:26)
[2025-02-15] MEDS: MAGNESIUM OXIDE 400 MG PO (09:27)
[2025-02-15] MEDS: VITAMIN D3 (cholecalciferol) 25 MCG PO (09:27)
[2025-02-15] MEDS: PACERONE 200 MG PO (09:28)
[2025-02-15] MEDS: THERAGRAN 1 TABLET PO (09:28)
[2025-02-15] MEDS: LIDOCAINE 4% PATCH 1 PATCH TOPICAL (09:30)
[2025-02-15] MEDS: NSS IV (09:33)
--- NOTE | 2025-02-15 11:41 | W.DCSUMMARY ---
Discharge Summary
Discharge Data
Date of Admission: 02/10/25
Date of Discharge: 02/15/25
-
Pending Results: No
Hospital Course
Primary care physician: Lynn Solano
Outpatient information resources director: Jadon Zhu
Inpatient consultants: [facility], pulmonary rn chronic
Procedures:
1. CABG, left atrial appendage clip
Primary Diagnosis:
1. Multivessel coronary disease
Secondary Diagnoses:
1. HTN/HLD
2. Chronic back pain/vertebral fx
3. Hx headaches
4. b/l rotator cuff in 2010 R and 2018 L
5. Meniscal tear
6. rhinoplasty
7. multiple ortho surgeries
-acute postop blood loss anemia
-acute postop atelectasis
-suspected acute postop pericarditis
-acute postop hypovolemia with subsequent hypervolemia
-acute postop a-fib on 02/11- tx with Amio bolus and drip
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
Hospital course: Patient was taken to the operating room and underwent CABG x 3 (LOUANN to LAD, GSV to OM, GSV to mid-PDA) and ELAA (35mm AtriClip) by Dr. Paul Norman. Patient experienced bigeminy with chest closure and was reopened in the
operating room for exploration. No issues were identified and sternum closed. Postprocedure KIEL reported an EF of 55-60% and absence of flow noted through left atrial appendage. For further details, please see operative note. Patient required no
intraoperative blood products and returned to CVICU on Levophed, Precedex, and insulin. Patient was extubated the afternoon of surgery. She required low-dose Levophed for mild hypotension and midodrine was initiated on postoperative day #1.
Patient was started on aspirin continuous churn buttermaker and Plavix (x 3 months). Home Crestor was continued. Patient developed a brief burst of atrial fibrillation which was treated with amiodarone bolus, infusion, and followed by oral therapy. Patient converted
to sinus rhythm and maintained sinus throughout rest of hospital stay. On postoperative day #2, patient was delined and chest tubes removed. Levophed was discontinued. Patient continued to be diuresed and was weaned off oxygen on postoperative
day #4. Low dose Beta-lalita was resumed on postoperative day #3 as blood pressure was acceptable on midodrine. Patient complained of dizziness on postoperative day #4 and gabapentin was discontinued with improvement of symptoms. Patient
ambulated in halls and completed steps with cardiac rehab. 1 bipolar ventricular epicardial wire was clipped to skin level on day of discharge per protocol. Patient will be discharged on amiodarone 200 mg daily due to postoperative atrial
fibrillation. Patient will be seen by transitional nurse team and follow-up with Dr. Norman in clinic on 03/11/2025.
Home medication changes:
Stop lisinopril due to low blood pressure
Change metoprolol XL 25 mg twice daily to 25 mg daily
Discharge Plan
-
Patient Disposition: Home (Routine Discharge)
Discharge Diagnosis/Procedures: CABG x 3,left atrial appendage clip (02/10/25)
Condition: Good
Diet: Low Cholesterol and Low Sodium
Activity: No strenuous activity
Driving Restrictions: Not until seen by your Dr
Bathing Restrictions: OK to Shower
Other Services: Cardiac Rehab
Specialty Instructions: Weigh Daily- Call MD for wt gain/loss 3 lbs overnight/5 lbs in 1 week
Referrals:
CT Transitional Care Nurse [Outside]
Referral Note:
The Cardiothoracic Transitional Care Nurse will call you to set up a visit in 1-2 days.
[facility]. Cardiac Rehab [Outside] - 03/21/25 1:00 pm
Referral Note: Cardiac Rehab Orientation and� First Exercise appointment is on Monday03/21/25 at 1pm.
The Cardiac Rehab gym is located on the first floor of the [facility].
Griselda Chandra PA-C [Specified Professional Personl, Cardiology] - 03/26/25 1:20 pm
Lynn Solano DO [Family Provider, Family Practice]
Paul Norman MD [Active, Cardiac Surgery] - 03/11/25 1:30 pm
Additional Discharge Medication Instructions: Hold Midodrine for SBP>110
Prescriptions:
New
cyclobenzaprine 10 mg Tablet
5 mg PO Q8HPRN PRN (Reason: muscle spasm) Qty: 10 0RF
midodrine 5 mg Tablet
5 mg PO TID@0800,1300,1800 Qty: 90 0RF
clopidogrel 75 mg Tablet
75 mg PO DAILY Qty: 30 2RF
tramadol 50 mg Tablet
25 mg PO Q6HPRN PRN (Reason: severe pain) Qty: 10 0RF
pantoprazole 40 mg Tablet,Delayed Release (Dr/Ec)
40 mg PO DAILY Qty: 30 2RF
metoprolol succinate [Toprol XL] 25 mg tablet extended release 24 hr
25 mg PO DAILY Qty: 30 2RF
amiodarone 200 mg tablet
200 mg PO DAILY Qty: 30 1RF
Continued
aspirin 81 mg Tablet
81 mg PO DAILY
multivitamin Tablet
1 tab PO DAILY
cholecalciferol (vitamin D3) [Vitamin D3] 25 mcg (1,000 unit) Tablet,Chewable
25 mcg PO DAILY
rosuvastatin 40 mg tablet
40 mg PO HS
Discontinued
lisinopril 5 mg Tablet
5 mg PO HS
metoprolol succinate 25 mg tablet extended release 24 hr
25 mg PO BID
Discharge Orders:
Discharge Patient (As Directed); Ordered 02/15/25
Ordered By: Marie Cabrera
Care Plan Goals
Care Plan Goals:
Problem: Readiness for enhanced knowledge related to diagnosis and treatment plan
Goal: Understand your diagnosis and treatment plan needs, including medications if applicable.
Instructions: Know your diagnosis, underlying causes and treatment plan options, including medications if applicable. Consult with your health care team to learn about your diagnosis and treatment plan, including medications if applicable.
Discharge Date and Time
Print Language: UZBEK
--- NOTE | 2025-02-15 13:09 | PTCARENOTE ---
Pt walked in halls and on stairs with card rehab, radha well. V wire clipped by CT INSTANT PRINTER OPERATOR. Mid sternal aquacell dsg removed, incision approx, scabbed and now ELIZABETH, clean and dry.
[2025-02-15] MEDS: TYLENOL 975 MG PO (14:25)
--- NOTE | 2025-02-15 16:05 | PTCARENOTE ---
Pt showered, radha well. BP 136/75, Midodrine dose held, Marie Cabrera aware. Discharge instructions reviewed with Pt, she expressed understanding. Pt aware of sternal precautions which was also reviewed.
== END 2025-02-15 15:55 | disposition home or self-care (01) | DRG 236 ==
LOC: IVU 05:35
PROVIDERS: Clinical Nurse Specialist Acute Care; Nurse Practitioner; ADMITTING PHYSICIAN Thoracic Surgery (Cardiothoracic Vascular Surgery); CONSULT PHYSICIAN Internal Medicine Critical Care Medicine; FAMILY PHYSICIAN Family Medicine
PROC: B24BZZ4 Ultrasonography of Heart with Aorta, Transesophageal (ICD-10-PCS; 2025-02-10)
PROC: 0211093 Bypass Coronary Artery, Two Arteries from Coronary Artery with Autologous Venous Tissue, Open Approach (ICD-10-PCS; 2025-02-10)
PROC: 5A1221Z Performance of Cardiac Output, Continuous (ICD-10-PCS; 2025-02-10)
PROC: 06BP4ZZ Excision of Right Saphenous Vein, Percutaneous Endoscopic Approach (ICD-10-PCS; 2025-02-10)
PROC: 02L70CK Occlusion of Left Atrial Appendage with Extraluminal Device, Open Approach (ICD-10-PCS; 2025-02-10)
PROC: 02100ZC Bypass Coronary Artery, One Artery from Thoracic Artery, Open Approach (ICD-10-PCS; 2025-02-10)
DX: I25.10 Atherosclerotic heart disease of native coronary artery without angina pectoris (principal); D62 Acute posthemorrhagic anemia; J98.11 Atelectasis; I30.8 Other forms of acute pericarditis; I97.190 Other postprocedural cardiac functional disturbances following cardiac surgery; I10 Essential (primary) hypertension; K76.0 Fatty (change of) liver, not elsewhere classified; M54.9 Dorsalgia, unspecified; G89.29 Other chronic pain; R73.9 Hyperglycemia, unspecified; E78.5 Hyperlipidemia, unspecified; I95.9 Hypotension, unspecified; I48.91 Unspecified atrial fibrillation; Y83.8 Other surgical procedures as the cause of abnormal reaction of the patient, or of later complication, without mention of misadventure at the time of the procedure; E86.1 Hypovolemia; E87.70 Fluid overload, unspecified; Z88.5 Allergy status to narcotic agent; Z88.0 Allergy status to penicillin; Z88.2 Allergy status to sulfonamides; Z91.018 Allergy to other foods; Z79.899 Other long term (current) drug therapy; Z82.49 Family history of ischemic heart disease and other diseases of the circulatory system
CPT/HCPCS: 36415; 71045; 71046; 80048; 80053; 81003; 81015; 82248; 82330; 82565; 82805; 82947; 82962; 83036; 83735; 84132; 84302; 84520; 85014; 85018; 85025; 85027; 85049; 85610; 85730; 86850; 86900; 86901; 86920; 87070; 87086; 93005; 93312; 93320; 93325; 93880; 93970; 94002; J0282

== ENCOUNTER 2025-04-08 13:00 | Outpatient (RCR) | payer MEDICARE, OTHER, SELFPAY | END 2025-04-08 23:59 | disposition home or self-care (01) | LOC: CRHB 13:00 | PROVIDERS: ATTENDING PHYSICIAN Internal Medicine Cardiovascular Disease | DX: I25.10 Atherosclerotic heart disease of native coronary artery without angina pectoris (principal); Z95.1 Presence of aortocoronary bypass graft (principal) | CPT/HCPCS: G0422; G0423 ==